=== PATIENT | male | born 1950 | race Caucasian/White ===

== ENCOUNTER 2022-03-15 08:15 | Inpatient (IN) | payer OTHER, SELFPAY ==
[2022-03-15] VITALS (14 sets, daily range): BP systolic 96–123; BP diastolic 58–70; PULSE 81–116; RESP 14–38; TEMP 35.9–37.1; O2SAT 92–96; BMI 20.7
--- NOTE | ~2022-03-15 | XR_ITS ---
EXAMINATION: XR chest 1V CLINICAL INFORMATION: Reason for Exam desaturation COMPARISON: None TECHNIQUE: XR chest 1V Tubes and lines: Port-A-Cath in place the tip of which projecting over the SVC/RA junction. Lungs and pleura: Diminished lung volume, no acute infiltrates or failure. Heart and mediastinum: Prominent aortic knob likely sequela of chronic systemic hypertension.. Bones/soft tissue: Skeletal structures included are normal for patient's age. XR/XR chest 1V IMPRESSION: 1. Port-A-Cath in place properly positioned. 2. Diminished lung volume. No acute infiltrates or failure.
--- NOTE | ~2022-03-15 | CT_ITS ---
EXAMINATION: CT HEAD WITHOUT CONTRAST CLINICAL INFORMATION: Altered mental status COMPARISON: None. TECHNIQUE: Contiguous axial imaging was performed from the skull base to vertex without intravenous administration of contrast. Coronal and sagittal reformatted images are performed at the CT scanner. [This CT examination was performed using dose optimization techniques as appropriate, variously including the following: *Automated exposure control *Adjustment of mA and/or kV according to patient size (this includes techniques or standardized protocols for targeted exams where dose is matched to indication/reason for exam; i.e. extremities or head) *Use of iterative reconstruction technique] DLP: 746 mGy-cm. FINDINGS: There is no evidence of acute intracranial hemorrhage or territorial infarction. No abnormal mass-effect or midline shift is seen. Roberts to white matter differentiation is well preserved. No extra-axial fluid collections are identified. There is generalized global volume loss. There is moderate prominence of the ventricles and the sulci . There is mild hypodensity of the periventricular white matter due to chronic small vessel ischemic disease. There are vascular calcifications of the internal carotid arteries bilaterally. There is no osseous abnormality. Left sphenoid sinus is nearly entirely opacified. Mastoid air cells and middle ear cavities are normally aerated CT/CT head/brain wo IV con IMPRESSION: No acute intracranial pathology.
--- NOTE | ~2022-03-15 | US_ITS ---
EXAMINATION: US RETROPERITONEAL LIMITED (RENAL ONLY) CLINICAL INFORMATION: HPI. COMPARISON: CT abdomen pelvis 03/17/2018 TECHNIQUE: Grayscale retrograde imaging of kidneys and bladder was performed. FINDINGS: RIGHT KIDNEY: Right kidney has been surgically removed. LEFT KIDNEY: 12.8 x 5.5 x 4.3 cm (SAG x AP x TRV). The Renal cortical thickness is normal. No calculi or focal parenchymal lesions. No hydronephrosis. US/US renal BI IMPRESSION: 1. Unremarkable left kidney. The right kidney has been surgically removed.
--- NOTE | 2022-03-15 08:59 | PC.NURSE ---
per pt had bone marrow biopsy on his [place] crest. pt is a/o x 4 no sob/camille noted lungs - cta. unable to speak 2ndary to largnxgectomy. heart sound regular( tachy 109). abd soft and non-tender, bxs + x [address] escobedo, pt/ aware of plan of care. hemmocult positive.
--- NOTE | 2022-03-15 09:03 | ECG_ITS ---
Test Reason : gi bleed Blood Pressure : / mmHG Vent. Rate : 106 BPM Atrial Rate : 106 BPM P-R Int : 124 ms QRS Dur : 084 ms QT Int : 336 ms P-R-T Axes : 042 014 042 degrees QTc Int : 446 ms Sinus tachycardia Nonspecific ST abnormality Abnormal ECG When compared with ECG of 24-JUN-2017 14:01, Vent. rate has increased BY 42 BPM QRS duration has decreased Nonspecific T wave abnormality now evident in Inferior leads T wave amplitude has decreased in Lateral leads ST now depressed in Anterior leads Referred By: Wendy Wright Electronically Signed By:LUIS GUTIERREZ MD
--- NOTE | 2022-03-15 09:28 | ED.GENADULT ---
HPI - General Adult General Chief complaint: General Medical Stated complaint: DIZZY,WEAK,LETHARGIC WHILE IN SHOWER,RESOLVED Time Seen by Provider: 03/15/22 08:36 History of Present Illness HPI narrative: Patient is a 71-year-old male with a long history of alcohol use. History of myeloproliferative disorder. Currently undergoing treatment at [facility]. 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 Presented today with having multiple bouts of coffee-ground emesis. At least 3 in the last 24 hours. Multiple bowel movement that was maroon in color. Patient denies any NSAID use. Has a history of having low platelets. The last platelet count at [facility] was 8. Patient was sent to the hospital for further evaluation. Positive generalized malaise weakness. No endoscopy done in the past. Related Data Home Medications Medication Instructions Recorded Confirmed acetaminophen 325 mg tablet 650 mg PO Q4H PRN Pain 03/15/22 03/15/22 allopurinol 300 mg tablet 300 mg PO DAILY 03/15/22 03/15/22 amlodipine 5 mg tablet 5 mg PO DAILY PRN Blood Pressure 03/15/22 03/15/22 amoxicillin 875 mg-potassium 1 tab PO BID 03/15/22 03/15/22 clavulanate 125 mg tablet atorvastatin 40 mg tablet 40 mg PO DAILY@2100 03/15/22 03/15/22 cholecalciferol (vitamin D3) 50 50 mcg PO DAILY 03/15/22 03/15/22 mcg (2,000 unit) tablet cyanocobalamin (vitamin B-12) 250 250 mcg PO BID 03/15/22 03/15/22 mcg tablet folic acid 1 mg tablet 1 mg PO DAILY 03/15/22 03/15/22 gabapentin 300 mg capsule 300 mg PO BID@0900,1300 03/15/22 03/15/22 gabapentin 600 mg tablet 600 mg PO DAILY@2100 03/15/22 03/15/22 levothyroxine 100 mcg tablet 100 mcg PO DAILY 03/15/22 03/15/22 lidocaine-prilocaine 2.5 %-2.5 % 1 appl topical ONCE PRN Painful 03/15/22 03/15/22 topical cream Procedure midodrine 5 mg tablet 5 mg PO TID PRN Blood Pressure 03/15/22 03/15/22 mirtazapine 7.5 mg tablet 7.5 mg PO BEDTIME 03/15/22 03/15/22 prochlorperazine maleate 10 mg 10 mg PO Q6H PRN Nausea 03/15/22 03/15/22 tablet venetoclax 100 mg tablet 400 mg PO DAILY 03/15/22 03/15/22 (Venclexta) Allergies Allergy/AdvReac Type Severity Reaction Status Date / Time Iodinated Contrast Media Allergy Hives Verified 03/15/22 10:15 [IV Contrast Dye] Review of Systems Review of Systems: No fever no chills no diaphoresis Yes all other systems are reviewed and are negative [facility] Past Medical History Attestation statement: The following information was validated with the patient. Social History Social History Alcohol intake: current Alcohol intake frequency: holidays/special occasions only Smoked in Last 30 Days: No Use of substances other than those prescribed or required for medical reasons: No Advance Directives: Yes Advance Directives Information Provided: Yes Advance Directives on File: No Physical Exam ED Vital Signs: Vital Signs - 24 hr 03/15/22 08:38 03/15/22 08:48 03/15/22 10:32 Temperature 98.7 F 98.7 F 98.6 F Pulse Rate 116 H 108 H 97 Respiratory Rate 38 H 26 H 32 H Blood Pressure 108/69 108/69 106/63 Pulse Oximetry 95 95 96 Oxygen Delivery Method Room Air Room Air Room Air BMI result Body Mass Index 20.7 Appearance: Alert. Oriented X3. No acute distress. Eyes: Pupils equal, round and reactive to light. ENT: Pharynx normal. Extremely pale. Dry. Neck: Normal inspection. Neck supple. No lymph nodes noted. No crepitus CVS: Normal heart rate and rhythm. Pulses normal. Normal S1 and S2 Respiratory: No respiratory distress. Breath sounds normal. No Wheezing. No rales Abdomen: Soft and nontender. No rigidity. No distention. good BS x4 Skin: Skin warm and dry. Normal skin color. Normal skin turgor. Rectal exam done with nurse Dilia present. Melanotic stool Extremities: No lower extremity edema. Neurovascular intact to all extremities. No Lacerations. No Rash Neuro: Oriented X 3. No motor deficit. No sensory deficit. Moving all extermities Medications Administered Discontinued Medications Generic Name Dose Route Start Last Admin Trade Name Nguyen PRN Reason Stop Dose Admin Acetaminophen 975 mg 03/15/22 10:56 03/15/22 11:02 Acetaminophen 325 Mg Tablet PO 03/15/22 10:57 975 mg ONCE ONE Administration Octreotide Acetate 50 mcg 03/15/22 09:03 03/15/22 09:50 Octreotide Acetate 100 Mcg/Ml Ampul IVPUSH 03/15/22 09:04 50 mcg ONCE ONE Administration Ondansetron HCl 4 mg 03/15/22 10:10 03/15/22 10:16 Ondansetron Hcl 4 Mg/2 Ml Vial IVPUSH 03/15/22 10:11 4 mg ONCE ONE Administration Pantoprazole Sodium 40 mg 03/15/22 09:03 03/15/22 09:50 Pantoprazole Sodium 40 Mg/10 Ml Vial IVPUSH 03/15/22 09:04 40 mg ONCE ONE Administration Medical Decision Making MDM Narrative Medical decision making narrative: History of myeloproliferative disorder. With history of having low platelets and low hemoglobin. Now has GI bleed. Already had 2 unit blood transfusion last week. Will check patient's hemoglobin immediately. Likely will require transfusion and admission. Started patient on PPI as patient has a long history of alcohol use. Octreotide started. Unknown variceal status. Patient's hemoglobin 10 out to be 7 range. Baseline hemoglobin in the 9 range. Patient's platelet is low. Still being we calibrated. Will 1st transfuse patient with platelets. Then with blood. Risk and benefit of transfusion discussed with patient. Patient's old labs from [facility] patient's portal was reviewed with him. Case discussed with GI. Case also discussed with hospitalist team. Patient is being admitted. In transfused. Lab Data Result diagrams: 03/15/22 09:27 03/15/22 09:27 Labs: Lab Results 03/15/22 03/15/22 03/15/22 Range/Units 09:18 09:25 09:27 RBC 2.61 L (4.60-5.80) X10*6/uL Hgb 7.7 L (14.0-18.0) g/dl Hct 23.3 L (42.0-52.0) % MCV 89.3 (80.0-98.0) fL MCH 29.5 (27.0-33.0) pg MCHC 33.0 (31.0-36.0) g/dl RDW 16.3 H (11.0-16.0) % MPV Not Reportable Immature Gran % (Auto) Cancelled Neut % (Auto) Cancelled Lymph % (Auto) Cancelled Antelope % (Auto) Cancelled Eos % (Auto) Cancelled Baso % (Auto) Cancelled Lymph # (Auto) Cancelled Antelope # (Auto) Cancelled Eos # (Auto) Cancelled Baso # (Auto) Cancelled Abs Immat Gran (auto) Cancelled Absolute Neuts (auto) Cancelled Absolute Nucleated RBC 0.310 H (0.0-0.012) X10*3/uL Nucleated RBC % (auto) 0.8 H (0.0-0.2) /100WBC Smear Path Review SEE NOTE Sodium (135-145) mmol/L Potassium (3.3-5.1) mmol/L Chloride (96-108) mmol/L Carbon Dioxide (22-29) mmol/L Anion Gap (12-20) BUN (9-16) mg/dL Creatinine (0.5-1.4) mg/dL Estim Creat Clear Calc Estimated GFR Random Glucose (60-115) mg/dL Calcium (8.4-10.2) mg/dL Total Bilirubin (0.0-1.0) mg/dL Direct Bilirubin (0.0-0.5) mg/dL AST (5-37) U/L ALT (0-40) U/L Alkaline Phosphatase (39-117) U/L Troponin I High Sens (<3.5-35.0) ng/L Total Protein (6.5-8.0) g/dL Albumin (3.5-5.0) g/dL Lipase (8-78) U/L Ethyl Alcohol mg/dL COVID-19 ([facility]) Negative (Negative) COVID-19 Clin Com See Note Blood Type A Positive Antibody Screen POSITIVE Crossmatch See Detail Crossmatch (AHG) See Detail 03/15/22 03/15/22 03/15/22 Range/Units 09:27 09:27 09:27 RBC (4.60-5.80) X10*6/uL Hgb (14.0-18.0) g/dl Hct (42.0-52.0) % MCV (80.0-98.0) fL MCH (27.0-33.0) pg MCHC (31.0-36.0) g/dl RDW (11.0-16.0) % MPV Immature Gran % (Auto) Neut % (Auto) Lymph % (Auto) Antelope % (Auto) Eos % (Auto) Baso % (Auto) Lymph # (Auto) Antelope # (Auto) Eos # (Auto) Baso # (Auto) Abs Immat Gran (auto) Absolute Neuts (auto) Absolute Nucleated RBC (0.0-0.012) X10*3/uL Nucleated RBC % (auto) (0.0-0.2) /100WBC Smear Path Review Sodium 140 (135-145) mmol/L Potassium 4.4 (3.3-5.1) mmol/L Chloride 102 (96-108) mmol/L Carbon Dioxide 15 L (22-29) mmol/L Anion Gap 27 H (12-20) BUN 61 H (9-16) mg/dL Creatinine 2.34 H (0.5-1.4) mg/dL Estim Creat Clear Calc 25.2 Estimated GFR 28 Random Glucose 116 H (60-115) mg/dL Calcium 9.0 (8.4-10.2) mg/dL Total Bilirubin 1.0 (0.0-1.0) mg/dL Direct Bilirubin 0.6 H (0.0-0.5) mg/dL AST 83 H (5-37) U/L ALT 48 H (0-40) U/L Alkaline Phosphatase 149 H (39-117) U/L Troponin I High Sens 50.7 H (<3.5-35.0) ng/L Total Protein 6.3 L (6.5-8.0) g/dL Albumin 3.1 L (3.5-5.0) g/dL Lipase 14 (8-78) U/L Ethyl Alcohol < 10 mg/dL COVID-19 ([facility]) (Negative) COVID-19 Clin Com Blood Type Antibody Screen Crossmatch Crossmatch (AHG) Critical Care Time Critical Care Time Critical Care Time: Yes Total Critical Care Time: 40 Attestation: I have personally provided 40 minutes of critical care time exclusive of time spent on separately billable procedures. Time includes review of lab data, radiology results, discussion with consultants, and monitoring for potential decompensation. Interventions were performed as documented above Discharge Plan Discharge Clinical Impression: Acute GI bleeding Patient Disposition: Admitted As Inpatient Prescriptions: No Action atorvastatin 40 mg tablet 40 mg PO DAILY@2100 midodrine 5 mg tablet 5 mg PO TID PRN (Reason: Blood Pressure) Rx Instructions: BLOOD PRESSURE <100 SYSTOLIC lidocaine-prilocaine 2.5-2.5 % cream 1 appl topical ONCE PRN (Reason: Painful Procedure) Rx Instructions: USE FOR PORT PROCEDURE NEEDED folic acid 1 mg tablet 1 mg PO DAILY allopurinol 300 mg tablet 300 mg PO DAILY Rx Instructions: WAS SUPPOSED TO INITIATE THERAPY ON 03/15/22 amoxicillin-pot clavulanate 875-125 mg tablet 1 tab PO BID mirtazapine 7.5 mg tablet 7.5 mg PO BEDTIME Venclexta 100 mg tablet 400 mg PO DAILY Rx Instructions: 400 MG IS GOAL DOSE AFTER RAMP UP. THERAPY INITIATION WAS SUPPOSED TO BE 03/15/22 levothyroxine 100 mcg Tablet 100 mcg PO DAILY acetaminophen 325 mg Tablet 650 mg PO Q4H PRN (Reason: Pain) gabapentin 600 mg Tablet 600 mg PO DAILY@2100 cyanocobalamin (vitamin B-12) 250 mcg Tablet 250 mcg PO BID amlodipine 5 mg Tablet 5 mg PO DAILY PRN (Reason: Blood Pressure) Rx Instructions: TAKE WHEN BLOOD PRESSURE IS >140/90 prochlorperazine maleate 10 mg Tablet 10 mg PO Q6H PRN (Reason: Nausea) gabapentin 300 mg Capsule 300 mg PO BID@0900,1300 cholecalciferol (vitamin D3) 50 mcg (2,000 unit) Tablet 50 mcg PO DAILY
[2022-03-15 09:44] LABS: Hematocrit 23.3 % (42.0-52.0); Hemoglobin 7.7 g/dl (14.0-18.0); Mean Corpuscular Hemoglobin 29.5 pg (27.0-33.0); Mean Corpuscular Volume 89.3 fL (80.0-98.0); NRBC Pct Auto 0.8 /100WBC (0.0-0.2); PLT CLUMP 1; Red Blood Count 2.61 X10*6/uL (4.60-5.80); Red Cell Distribution Width 16.3 % (11.0-16.0)
[2022-03-15 09:46] LABS: COVID-19 Test Negative (Negative); IDNOW Serial# 9DB6401D
[2022-03-15 09:46] LABS: WBC ABN SCTR FOR CBC 1
--- NOTE | 2022-03-15 09:49 | PC.NURSE ---
pt is a/op x 4 and is able to make needs known. denies any pain disc.
[2022-03-15] MEDS: Pantoprazole Sodium 40 MG/10 ML VIAL IVPUSH ×2 (09:50→16:20)
[2022-03-15] MEDS: Octreotide Acetate 100 MCG/ML AMPUL 50 MCG IVPUSH (09:50)
[2022-03-15 10:04] LABS: Ethanol < 10 mg/dL
[2022-03-15 10:06] LABS: Alanine Aminotransferase 48 U/L (0-40); Albumin Level 3.1 g/dL (3.5-5.0); Alkaline Phosphatase 149 U/L (39-117); Anion Gap 27 (12-20); Aspartate Amino Transferase 83 U/L (5-37); Bilirubin Direct 0.6 mg/dL (0.0-0.5); Blood Urea Nitrogen 61 mg/dL (9-16); Carbon Dioxide 15 mmol/L (22-29); Chloride 102 mmol/L (96-108); Creatinine Clr Calc Pharmacy 25.2; Estimated Glomerular Filt Rate 28; Glucose Random 116 mg/dL (60-115); Lipase 14 U/L (8-78); Potassium 4.4 mmol/L (3.3-5.1); Sodium 140 mmol/L (135-145); Total Protein 6.3 g/dL (6.5-8.0)
[2022-03-15 10:09] LABS: Troponin-I High Sensitivity 50.7 ng/L (<3.5-35.0)
--- NOTE | 2022-03-15 10:14 | PC.NURSE ---
pt n/v small amt of dark brown emesis, md aware.
[2022-03-15] MEDS: ondansetron HCL 4 MG/2 ML VIAL IVPUSH (10:16)
[2022-03-15] MEDS: Acetaminophen 325 MG TABLET 975 MG PO (11:02)
--- NOTE | 2022-03-15 11:06 | PC.NURSE ---
Received report from ERICKA Dobbs. This RN met with pt, pt is A&Ox4, unable to speak s/p laryngectomy, able to communicate via mouthing words and hands expressions. at bedside assisting with communication
--- NOTE | 2022-03-15 12:06 | PHA.MEDREC ---
Pharmacy Consult ? Medication Reconciliation Pharmacy has completed the medication reconciliation. Patient had a very complete medication list. 2 of the medications entered (allopurinol and venetoclax) were not supposed to initiate until today (03/15/22) as part of a new treatment regimen so patient has never taken them before.
[2022-03-15 12:38] LABS: Atypical Lymphs Percent Manual 4 % (0-6); Band Neutrophils Percent 4 % (3-5); Blast Percent 16 %; Lymphocytes Percent Manual 11 % (20-40); Monocytes Percent Manual 3 % (2-11); Neutrophils Percent Manual 61 % (45-73); Nucleated Red Blood Cells 7 /100WBC (0-0); Promyelocytes Percent 1 %
[2022-03-15 12:41] LABS: Burr Cells 2+ (3-5) /OIF; Large Platelet PRESENT; Platelet Estimate DECREASED (NORMAL)
[2022-03-15 12:42] LABS: Ovalocytes 1+ (5-14) /OIF; Schistocytes 1+ (0-2) /OIF
[2022-03-15 12:43] LABS: Microcytosis 1+ (5-14) /OIF; RBC Morphology NOTED
[2022-03-15 12:44] LABS: Platelet Morphology Comment NOTE
[2022-03-15 12:47] LABS: Atypical Lymph Absolute Manual 1.6 x10*3/uL; Blastocytes Absolute 6.5 X10*3/uL; Lymphocytes Absolute Manual 4.5 X10*3/uL (1.2-4.9); Monocytes Absolute Manual 1.2 X10*3/uL (0.1-1.2); Neutrophils Absolute Manual 26.5 X10*3/uL (2.0-8.3); Promyelocytes Absolute 0.4 X10*3/uL; White Blood Count 40.8 X10*3/uL (4.8-10.8)
[2022-03-15 12:48] LABS: Platelet Count 20 X10*3/uL (160-400)
--- NOTE | 2022-03-15 13:17 | PC.NURSE ---
patients requesting benadryl to be administered prior to pt getting platelets, states that he had hives last platelet infusion he got and the benadryl helped, pt also has had blood reactions in the form of a fever which she states he is just medicated with tylenol and is able to continue with the infusions.
--- NOTE | 2022-03-15 14:40 | P.HPHOSP_ITS ---
History of Present Illness Date of Service: 03/15/22 Chief Complaint: dark vomitus The patient is a 71 year old male with a PMH of MDS currently being treated at [facility], laryngeal ca s/p chemo/laryngectomy (In ), R renal cell Ca s/p resection, prior alcohol use, HTN and Hypotension, hypothryoid, HLD who presents to the ED after he had a dark color vomitus on the day of admission. Due to his laryngectomy, the patient is unable to speak and hence the history is obtained from his who is bedside. She reports that he underwent a bone marrow biopsy at [facility] on the Tueady prior to admission. He has had low platelets and anemia for quiet some while. Upon further questioning, the pt does endorse that he had melanotic stools for several days. He reports epigastric abdominal pain. He denies NSAID use. Reports last alcoholic drink was about 3 weeks ago. In the ED, patients work up revealed anemia/thrombocytopenia/leukocytosis (Hb around 7 and platelets around 20, wbc 40 with 16% blasts). Dr. Wright from the ED reported that he discussed the presence of blasts in the patient's peripheral smear with Dr. Rojas at [facility]. Dr. Wright reports that he does not need to be transferred to [facility] for this particular reason. Patient's has CBC records from [facility] from Tuesday (3 days prior to admission) which show 20% blasts. The patient has been given IV PPI, and will be transfused 2 units PRBC + Platelets. GI has been informed by the ED provider. Review of Systems Review of Systems: negative except HPI [facility] Medical History (Updated 03/15/22 @ 14:51 by Alessandro Brar MD) Dyslipidemia Hypothyroidism Laryngeal cancer MDS (myelodysplastic syndrome) Peripheral arterial disease Renal cell carcinoma Surgical History (Updated 03/15/22 @ 14:51 by Alessandro Brar MD) H/O laryngectomy History of nephrectomy S/P arterial stent Social History Alcohol intake: current Alcohol intake frequency: holidays/special occasions only Smoked in Last 30 Days: No Use of substances other than those prescribed or required for medical reasons: No Advance Directives: Yes Advance Directives Information Provided: Yes Advance Directives on File: No Meds Allergies Allergy/AdvReac Type Severity Reaction Status Date / Time Iodinated Contrast Media Allergy Hives Verified 03/15/22 10:15 [IV Contrast Dye] Active Medications: Current Medications Acetaminophen (Acetaminophen 325 Mg Tablet) 650 mg PO Q6H PRN PRN Reason: Pain, Mild (Pain Scale 1-3) Diphenhydramine HCl 25 mg/ (Sodium Chloride) 50.5 mls @ 200 mls/hr IV ONCE [facility] Last Admin: 03/15/22 14:09 Dose: 200 mls/hr Ondansetron HCl (Ondansetron Hcl 4 Mg/2 Ml Vial) 4 mg IVPUSH Q8H PRN PRN Reason: Nausea and Vomiting Pantoprazole Sodium (Pantoprazole Sodium 40 Mg/10 Ml Vial) 40 mg IVPUSH BID@0630,1630 [facility] Pharmacy Consult (Consult Rx Perform Med Rec) 1 each MISCELLANE ONCE PRN PRN Reason: Consult order Sodium Chloride (0.9 % Sodium Chloride Flush 3 Ml Syringe) 3 ml IVFLUSH QSHIFT [facility] Home Medications Medication Instructions Recorded Confirmed Last Taken Type acetaminophen 325 mg tablet 650 mg PO Q4H PRN Pain 03/15/22 03/15/22 Unknown History allopurinol 300 mg tablet 300 mg PO DAILY 03/15/22 03/15/22 Unknown History amlodipine 5 mg tablet 5 mg PO DAILY PRN Blood Pressure 03/15/22 03/15/22 Unknown History amoxicillin 875 mg-potassium 1 tab PO BID 03/15/22 03/15/22 03/15/22 History clavulanate 125 mg tablet atorvastatin 40 mg tablet 40 mg PO DAILY@209903/15/22 03/15/22 03/14/22 History cholecalciferol (vitamin D3) 50 50 mcg PO DAILY 03/15/22 03/15/22 03/15/22 History mcg (2,000 unit) tablet cyanocobalamin (vitamin B-12) 250 250 mcg PO BID 03/15/22 03/15/22 03/15/22 History mcg tablet folic acid 1 mg tablet 1 mg PO DAILY 03/15/22 03/15/22 03/15/22 History gabapentin 300 mg capsule 300 mg PO BID@0900,1300 03/15/22 03/15/22 03/15/22 History gabapentin 600 mg tablet 600 mg PO DAILY@2100 03/15/22 03/15/22 03/14/22 History levothyroxine 100 mcg tablet 100 mcg PO DAILY 03/15/22 03/15/22 03/15/22 History lidocaine-prilocaine 2.5 %-2.5 % 1 appl topical ONCE PRN Painful 03/15/22 03/15/22 Unknown History topical cream Procedure midodrine 5 mg tablet 5 mg PO TID PRN Blood Pressure 03/15/22 03/15/22 Unknown History mirtazapine 7.5 mg tablet 7.5 mg PO BEDTIME 03/15/22 03/15/22 03/14/22 History prochlorperazine maleate 10 mg 10 mg PO Q6H PRN Nausea 03/15/22 03/15/22 Unknown History tablet venetoclax 100 mg tablet 400 mg PO DAILY 03/15/22 03/15/22 Unknown History (Venclexta) Physical Exam Vital Signs and Narrative: Vital Signs: Last Vital Signs Temp 97.2 F 03/15/22 14:29 Pulse 85 03/15/22 14:29 Resp 18 03/15/22 14:29 BP 109/65 03/15/22 14:29 Pulse Ox 96 03/15/22 13:26 O2 Del Method 03/15/22 13:26 BMI result Body Mass Index 20.7 Const: Other: Constitutional - Awake and Alert, No apparent distress, chronically ill appearing Eyes - PERRLA, EOMI Cardiovascular - S1S2, RRR, No edema Respiratory - Normal lung expansion, Normal respiratory effort, No respiratory distress, CTA bilaterally Gastrointestinal - NT / ND; +BS; No rebound or guarding - No CVA tenderness Extremities - no calf tenderness bilaterally, no swelling Musculoskeletal - Normal inspection, normal ROM Skin - Warm/Dry Neurological - Alert & oriented x3, No focal deficit Psychological - Appropriate affect Results Labs CBC and Chem 7: 03/15/22 09:27 03/15/22 09:27 Labs: Laboratory Results - last 24 hr 03/15/22 03/15/22 03/15/22 09:18 09:25 09:27 MCV 89.3 MCH 29.5 MCHC 33.0 RDW 16.3 H Plt Count 20 L* MPV Not Reportable Immature Gran % (Auto) Cancelled Neut % (Auto) Cancelled Lymph % (Auto) Cancelled [place] % (Auto) Cancelled Eos % (Auto) Cancelled Baso % (Auto) Cancelled Lymph # (Auto) Cancelled [place] # (Auto) Cancelled Eos # (Auto) Cancelled Baso # (Auto) Cancelled Abs Immat Gran (auto) Cancelled Absolute Neuts (auto) Cancelled Absolute Nucleated RBC 0.310 H Nucleated RBC % (auto) 0.8 H Neutrophils % (Manual) 61 Band Neutrophils % 4 Lymphocytes % (Manual) 11 L Atypical Lymphs % (Man) 4 Monocytes % (Manual) 3 Promyelocytes % 1 Blast Cells % (Manual) 16 Abs Neuts (Manual) 26.5 H Lymphocytes # (Manual) 4.5 Atyp Lymphs # (Manual) 1.6 Monocytes # (Manual) 1.2 Promyelocytes # 0.4 Blast Cells # 6.5 Nucleated RBCs 7 H Platelet Estimate DECREASED Large Platelets PRESENT Plt Morphology Comment NOTE RBC Morphology NOTED Microcytosis 1+ (5-14) Ovalocytes 1+ (5-14) Alex Cells 2+ (3-5) Schistocytes 1+ (0-2) Smear Path Review SEE NOTE Anion Gap Estim Creat Clear Calc Estimated GFR Random Glucose Calcium Total Bilirubin Direct Bilirubin AST ALT Alkaline Phosphatase Troponin I High Sens Total Protein Albumin Lipase Ethyl Alcohol COVID-19 ([facility]) Negative COVID-19 Clin Com See Note Blood Type A Positive Antibody Screen NEGATIVE Antibody Identification Negative MYRA, Polyspecific NEGATIVE Positive MYRA Work-up TNP Crossmatch See Detail Crossmatch (AHG) See Detail Enhanced Crossmatch See Detail 03/15/22 03/15/22 03/15/22 09:27 09:27 09:27 MCV MCH MCHC RDW Plt Count MPV Immature Gran % (Auto) Neut % (Auto) Lymph % (Auto) [place] % (Auto) Eos % (Auto) Baso % (Auto) Lymph # (Auto) [place] # (Auto) Eos # (Auto) Baso # (Auto) Abs Immat Gran (auto) Absolute Neuts (auto) Absolute Nucleated RBC Nucleated RBC % (auto) Neutrophils % (Manual) Band Neutrophils % Lymphocytes % (Manual) Atypical Lymphs % (Man) Monocytes % (Manual) Promyelocytes % Blast Cells % (Manual) Abs Neuts (Manual) Lymphocytes # (Manual) Atyp Lymphs # (Manual) Monocytes # (Manual) Promyelocytes # Blast Cells # Nucleated RBCs Platelet Estimate Large Platelets Plt Morphology Comment RBC Morphology Microcytosis Ovalocytes Lancing Cells Schistocytes Smear Path Review Anion Gap 27 H Estim Creat Clear Calc 25.2 Estimated GFR 28 Random Glucose 116 H Calcium 9.0 Total Bilirubin 1.0 Direct Bilirubin 0.6 H AST 83 H ALT 48 H Alkaline Phosphatase 149 H Troponin I High Sens 50.7 H Total Protein 6.3 L Albumin 3.1 L Lipase 14 Ethyl Alcohol < 10 COVID-19 ([facility]) COVID-19 Clin Com Blood Type Antibody Screen Antibody Identification MYRA, Polyspecific Positive MYRA Work-up Crossmatch Crossmatch (AHG) Enhanced Crossmatch Assessment and Plan (1) Acute GI bleeding: Status: Acute Plan 71 yo M with multiple medical issues including active treatment for MDS who presents with a 1 day history of dark vomitus and a several day history of melatonic stools. His presentation is consistent with upper gi bleed. He will be admitted for further treatment. 1. Acute GI bleed / acute blood loss anemia 2 units prbcs + 1 unit platelets ordered by ED IV PPI GI consult NPO including meds for now 2. Thrombocytopenia / leukocytosis with 16% blasts likey due to underlying MDS ED provider discussed the case with patient's oncologist at [facility]. Per ED provider, the patient does not need transfer to the [facility]. 3. LYNN with metabolic acidosis likely secondary to volume depletion being given blood -- will hold off on IV hydration repeat with AM labs 4. Prior alcohol use reports last drink >3 weeks ago monitor for withdrawal hold his PO meds today -- restart after GI eval Full Code DVT pptx, mechanical due to Gi bleed. Quality Stroke Does the patient have a stroke diagnosis?: No VTE Prior VTE?: No VTE Risk Level:: Medical - moderate - high VTE Device Contraindication: N/A - Device Ordered VTE Drug Contraindication: Treatment Not Tolerated
--- NOTE | 2022-03-15 16:05 | PM.EVENT ---
Event Note Date of Service: 03/15/22 Event Note: GI consult dictated egd scheduled for 03/16 for further evaluation of GI Bleeding agree with transfusions, ppi, monitoring hct. heme/onc to eval if further blood products needed prior to EGD
[2022-03-15] MEDS: 0.9 % Sodium Chloride Flush 3 ML SYRINGE IVFLUSH ×2 (16:20→23:35)
--- NOTE | 2022-03-15 16:24 | PC.NURSE ---
patient a&ox3, denies pain/discomfort, cardiac surgeon nsr 90s, vitals continue to be stable, pt denies itchiness, denies sob, denies rash, temperature currently wnl, pt tolerating transfusion well, family at bedside, call ortega within reach, will cnotinue to monitor
[2022-03-16] VITALS (17 sets, daily range): BP systolic 98–141; BP diastolic 55–74; PULSE 83–105; RESP 16–20; TEMP 35.6–37.7; O2SAT 91–99; BMI 20.7
[2022-03-16] MEDS: diphenhydrAMINE HCL 50 MG/ML VIAL 25 MG IVPUSH (00:10)
--- NOTE | 2022-03-16 02:41 | CONS_ITS ---
DATE OF SERVICE: 03/15/2022 REFERRING PHYSICIAN: Dr. Wright REASON FOR CONSULTATION: GI bleeding. HISTORY OF PRESENT ILLNESS: The patient is a pleasant 71-year-old man who was admitted to the hospital after presenting to the emergency room with complaints of dizziness and weakness at home. He reportedly felt weak while in the shower and was brought to the hospital. He also reported some vomiting of dark material that looked like coffee grounds and had black stools. In the emergency department, he was evaluated with laboratory studies showing a hematocrit of 23.3 and a platelet count of 20. Rectal exam reportedly revealed melena. He was admitted to the hospital and has been given platelet transfusion. He is currently scheduled to receive packed red blood cells for his anemia. He had a high white count on admission with 16% blasts as well. The patient is status post laryngectomy and most of the history is obtained from his who reports he does have a diagnosis of myelodysplastic syndrome and underwent recent bone marrow biopsy at [facility] where he is treated. He has also been treated with packed red blood cell transfusion and platelet transfusion as an outpatient. He denies a prior history of upper GI bleeding. He does not use NSAIDs. He formally drank alcohol regularly 3-4 drinks per day by his report, but stopped this about 3 weeks ago. PAST MEDICAL HISTORY: 1. Myelodysplastic syndrome. 2. Hypothyroidism. 3. Laryngeal cancer, status post laryngectomy. 4. Hypothyroidism. 5. Peripheral arterial disease, status post stent placements and multiple procedures on his lower extremities. 6. Renal cell carcinoma with right nephrectomy. CURRENT MEDICATIONS: Current medication list is reviewed in the chart. ALLERGIES: CONTRAST DYE. FAMILY HISTORY: This is reviewed with the patient and is noncontributory. SOCIAL HISTORY: He denies current tobacco and alcohol use. REVIEW OF SYSTEMS: SKIN: No pruritus. HEENT: Negative. CARDIOPULMONARY: No shortness of breath or chest pain. GASTROINTESTINAL: As above. GENITOURINARY: Negative. NEUROPSYCHIATRIC: Negative. PHYSICAL EXAMINATION: GENERAL: Shows a thin male lying in bed. VITAL SIGNS: Stable. SKIN: Anicteric. HEENT: Shows no scleral icterus. NECK: Shows status post laryngectomy. LUNGS: Clear. HEART: Shows a regular rate and rhythm. S1, S2. No murmur. ABDOMEN: Soft without focal masses or tenderness. Bowel sounds are present. No organomegaly is noted. EXTREMITIES: Without edema. LABORATORY DATA: Shows a white blood cell count of 40.8, hematocrit 23.3, platelet count 20. IMPRESSION: Upper gastrointestinal bleeding. The differential diagnosis for this is quite broad, especially in the setting of thrombocytopenia, possible causes include gastritis, esophagitis, peptic ulcer disease, AVMs, and mass lesions. We discussed this today. I have recommended he undergo upper endoscopy once his transfusions are complete. He will be seen by Hematology/Oncology regarding the need for any other transfusions prior to endoscopy. I agree with treating him with a proton pump inhibitor and following his hematocrit. Thank you for asking me to see him. I will follow him in the hospital with you. MD IRMA Easton/MARLENY / [phone]
[2022-03-16] MEDS: Pantoprazole Sodium 40 MG/10 ML VIAL IVPUSH ×2 (05:00→15:57)
[2022-03-16 07:20] LABS: PLT CLUMP 1
[2022-03-16 07:23] LABS: Hematocrit 27.8 % (42.0-52.0); Hemoglobin 9.4 g/dl (14.0-18.0); Mean Corpuscular HGB Conc 33.8 g/dl (31.0-36.0); Mean Corpuscular Hemoglobin 30.7 pg (27.0-33.0); Mean Corpuscular Volume 90.8 fL (80.0-98.0); NRBC Pct Auto 0.5 /100WBC (0.0-0.2); Red Blood Count 3.06 X10*6/uL (4.60-5.80); Red Cell Distribution Width 15.7 % (11.0-16.0)
[2022-03-16 07:24] LABS: Immature Retic Fraction 3.6 % (2.3-13.4); Retic HGB Equivalent 39.5 pg (30.0-35.0); Reticulocyte Percent 0.7 % (0.5-1.8); Reticulocytes Absolute 0.022 X10*6/uL (0.026-0.095)
[2022-03-16 07:29] LABS: Fibrinogen 518 MG/DL (259-690); INTERNATIONAL NORM RATIO 1.7 (0.9-1.1); Prothrombin Time 19.4 SEC (10.0-13.1)
[2022-03-16 07:31] LABS: Partial Thromboplastin Time 27.7 SEC (26.0-36.4)
[2022-03-16 07:33] LABS: PLT ABN DIST 1; WBC ABN SCTR FOR CBC 1
[2022-03-16 07:39] LABS: Anion Gap 23 (12-20); Blood Urea Nitrogen 82 mg/dL (9-16); Calcium 8.2 mg/dL (8.4-10.2); Carbon Dioxide 17 mmol/L (22-29); Chloride 104 mmol/L (96-108); Estimated Glomerular Filt Rate 25; Glucose Random 85 mg/dL (60-115); Potassium 4.1 mmol/L (3.3-5.1); Sodium 140 mmol/L (135-145)
[2022-03-16 07:41] LABS: Alanine Aminotransferase 43 U/L (0-40); Albumin Level 2.8 g/dL (3.5-5.0); Alkaline Phosphatase 119 U/L (39-117); Aspartate Amino Transferase 69 U/L (5-37); Bilirubin Direct 1.3 mg/dL (0.0-0.5); Bilirubin Total 1.8 mg/dL (0.0-1.0); Total Protein 5.7 g/dL (6.5-8.0)
[2022-03-16 08:06] LABS: Platelet Count 20 X10*3/uL (160-400); White Blood Count 43.7 X10*3/uL (4.8-10.8)
[2022-03-16 08:11] LABS: Atypical Lymph Absolute Manual 4.8 x10*3/uL; Atypical Lymphs Percent Manual 11 % (0-6); Band Neutrophils Percent 1 % (3-5); Basophils Abs Manual 0.4 X10*3/uL (0.0-0.2); Basophils Percent Manual 1 % (0-2); Blast Percent 16 %; Lactate Dehydrogenase 4771 U/L (118-273); Lymphocytes Absolute Manual 4.8 X10*3/uL (1.2-4.9); Lymphocytes Percent Manual 11 % (20-40); Metamyelocytes Absolute 0.9 X10*3/uL; Metamyelocytes Percent 2 %; Monocytes Absolute Manual 2.2 X10*3/uL (0.1-1.2); Monocytes Percent Manual 5 % (2-11); Neutrophils Absolute Manual 23.6 X10*3/uL (2.0-8.3); Neutrophils Percent Manual 53 % (45-73); Nucleated Red Blood Cells 6 /100WBC (0-0)
[2022-03-16 08:13] LABS: RBC Morphology NOTED
[2022-03-16 08:14] LABS: Acanthocytes 1+ (0-2) /OIF; Burr Cells 1+ (0-2) /OIF; Hypochromasia 1+ (5-14) /OIF; Ovalocytes 1+ (5-14) /OIF
[2022-03-16 08:15] LABS: Large Platelet PRESENT; Platelet Estimate DECREASED (NORMAL); Platelet Morphology Comment NORMAL; Polychromasia 1+ (0-2) /OIF
--- NOTE | 2022-03-16 08:46 | MHC.CM.PN ---
CM met with Patient and his at bedside. It appears difficult for patient to speak;he gave CM permission to address questions with his . Patient lives in a house with his and Son and he has access to a cane, walker and w/c PRN. Patient has been to [facility] and the attached SNF/[facility] in the recent past. Home,self care is the goal and CM has initiated and will follow for dc planning. Patient has received covid vax x3 and his PCP is Dr. Osei.IMM addressed and original has been given to Patient and a copy has been placed on the chart.
--- NOTE | 2022-03-16 09:24 | P.CNHO_ITS ---
Subjective - Subjective Chief complaint: Weakness, bleeding Patient: new to practice Consult date: 03/16/22 Requesting Physician: Dr. Layne Primary Care Provider: Shaun Osei MD HPI - Consult Narrative Reason for consult: MDS/AML Narrative: Lance Schafer Sr is a 71 year old male who was admitted to [facility] for GI bleeding. He presented with complaints of dizziness, weakness, coffee-ground emesis and black colored stools. Workup in the emergency department revealed severe anemia with a hemoglobin of 7.7 and platelet count of 20 K. his white count was elevated at 40.8 with 16% blasts. Patient has a history of therapy related myelodysplastic syndrome that was diagnosed in June 2021, he is under the care of Dr. Rojas at [facility]. He has received 5 months of therapy with decitabine. He underwent a bone marrow biopsy just last week to see if he transformed to AML. In July 2015 he underwent right nephrectomy for renal cell cancer. 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 He underwent chemoradiotherapy. In December 2018 cancer recurred, he underwent complete laryngectomy at [facility]. He has a history of multiple vascular procedures both left and right fem-pop bypass surgeries. He was not told of renal insufficiency in the past. He denies any fever or chills at home. No abdominal pain or dysuria. No prior history of GI bleeding. Review of Systems - Constitutional Reports as per HPI, Reports malaise, Reports poor appetite, Reports weight loss - Cardiovascular Reports no additional cardiovascular complaints - Respiratory Reports no additional respiratory complaints - Gastrointestinal Reports black, tarry stools, Reports change in bowel habits Oncology Screenings - ECOG Performance Status ECOG Performance Status: 1 [facility] Medical History: Medical History (Last Reviewed 03/15/22 @ 19:57 by Onur Devries, ERICKA) Dyslipidemia Hypothyroidism Laryngeal cancer MDS (myelodysplastic syndrome) Peripheral arterial disease Renal cell carcinoma Surgical History: Surgical History (Last Reviewed 03/15/22 @ 19:57 by Onur Devries, ERICKA) H/O laryngectomy History of nephrectomy S/P arterial stent Social History: Social History (Last Updated 03/15/22 @ 19:57 by Onur Devries, ERICKA) Living Situation History: Household Members: Spouse Caregiver staying overnight: No Housing: House Do you presently have visiting nurse or other home services: Yes Tobacco History: Patient Tobacco Use Status: Former Tobacco user Advance Directives: Advance Directives Date on File: 03/15/22 Occupation Assessmet: service: Yes Current occupational status: disabled Home Medications and Allergies Current Medications: Current Medications Acetaminophen (Acetaminophen 325 Mg Tablet) 650 mg PO Q6H PRN PRN Reason: Pain, Mild (Pain Scale 1-3) Diphenhydramine HCl 25 mg/ (Sodium Chloride) 50.5 mls @ 200 mls/hr IV ONCE [facility] Last Infusion: 03/15/22 14:25 Dose: Infused Ampicillin Sodium/Sulbactam (Sodium 3 gm/ Sodium Chloride) 100 mls @ 200 mls/hr IV Q12H [facility] Ondansetron HCl (Ondansetron Hcl 4 Mg/2 Ml Vial) 4 mg IVPUSH Q8H PRN PRN Reason: Nausea and Vomiting Pantoprazole Sodium (Pantoprazole Sodium 40 Mg/10 Ml Vial) 40 mg IVPUSH BID@0630,1630 [facility] Last Admin: 03/16/22 05:00 Dose: 40 mg Pharmacy Consult (Consult Rx Perform Med Rec) 1 each MISCELLANE ONCE PRN PRN Reason: Consult order Sodium Chloride (0.9 % Sodium Chloride Flush 3 Ml Syringe) 3 ml IVFLUSH QSHIFT [facility] Last Admin: 03/15/22 23:35 Dose: 3 ml Home Medications Medication Instructions Recorded Confirmed Type acetaminophen 325 mg tablet 650 mg PO Q4H PRN Pain 03/15/22 03/15/22 History allopurinol 300 mg tablet 300 mg PO DAILY 03/15/22 03/15/22 History amlodipine 5 mg tablet 5 mg PO DAILY PRN Blood Pressure 03/15/22 03/15/22 History amoxicillin 875 mg-potassium 1 tab PO BID 03/15/22 03/15/22 History clavulanate 125 mg tablet atorvastatin 40 mg tablet 40 mg PO DAILY@2100 03/15/22 03/15/22 History cholecalciferol (vitamin D3) 50 50 mcg PO DAILY 03/15/22 03/15/22 History mcg (2,000 unit) tablet cyanocobalamin (vitamin B-12) 250 250 mcg PO BID 03/15/22 03/15/22 History mcg tablet folic acid 1 mg tablet 1 mg PO DAILY 03/15/22 03/15/22 History gabapentin 300 mg capsule 300 mg PO BID@0900,1300 03/15/22 03/15/22 History gabapentin 600 mg tablet 600 mg PO DAILY@2100 03/15/22 03/15/22 History levothyroxine 100 mcg tablet 100 mcg PO DAILY 03/15/22 03/15/22 History lidocaine-prilocaine 2.5 %-2.5 % 1 appl topical ONCE PRN Painful 03/15/22 03/15/22 History topical cream Procedure midodrine 5 mg tablet 5 mg PO TID PRN Blood Pressure 03/15/22 03/15/22 History mirtazapine 7.5 mg tablet 7.5 mg PO BEDTIME 03/15/22 03/15/22 History prochlorperazine maleate 10 mg 10 mg PO Q6H PRN Nausea 03/15/22 03/15/22 History tablet venetoclax 100 mg tablet 400 mg PO DAILY 03/15/22 03/15/22 History (Venclexta) Allergies Allergy/AdvReac Type Severity Reaction Status Date / Time Iodinated Contrast Media Allergy Hives Verified 03/15/22 10:15 [IV Contrast Dye] Physical Exam Vital signs: Vital Signs Temp 99.6 F 03/16/22 07:50 Pulse 99 03/16/22 07:50 Resp 18 03/16/22 07:50 BP 102/67 03/16/22 07:50 Pulse Ox 91 L 03/16/22 07:50 O2 Del Method 03/16/22 07:50 Intake & Output 03/15/22 03/16/22 03/16/22 18:59 06:59 18:59 Intake Total 787.5 / 1397.5 610 / 1397.5 Output Total 200 / 200 Balance 787.5 / 1397.5 610 / 1397.5 -200 / -200 Urine Output (Average ml/kg/hr) 0.28 Intake: Intake, Oral Amount 260 / 260 Intake (Blood Product) Amount 737 / 1087 350 / 1087 Aph Plts Irr Pas Lvds (Ea153) 387 / 387 Unit [id number] Red Blood Cells (E0382) Unit 350 / 350 [id number] Red Blood Cells (E0382) Unit 350 / 350 [id number] Intake, IV Amount 50.5 / 50.5 diphenhydrAMINE HCL 25 mg In 0. 50.5 / 50.5 9 % Sodium Chloride 50 ml @ 200 mls/hr IV ONCE ADDIE Rx#: [id number] Output: Output, Urine Amount 200 / 200 Other: Dinner % Eaten 0% Number of Unmeasured Voids 0 Urine Urinal Urine Color Yellow Stool Amount Scant Stool Color Silva Weight 59.874 kg 59.971 kg Weight in Grams 27061 Weight 59.971 kg - Constitutional Present: no acute distress, chronically ill appearing - Routine HEENT Exam Head: Present: atraumatic Eye: Present: conjunctivae pale - Routine Neck Exam Present: supple. Absent: lymphadenopathy - Routine Respiratory Exam Absent: accessory muscle use - Routine Cardiovascular Exam Cardiovascular: Present: S1, S2 - Routine Abdominal Exam Absent: mass - Routine Extremities Exam Present: normal inspection Hem/Onc Consult Result - Labs CBC & Chem 7: 03/16/22 06:48 03/16/22 06:48 Labs: Short CBC 03/15/22 03/16/22 Range/Units 09:27 06:48 WBC 40.8 H* 43.7 H* (4.8-10.8) X10*3/uL Hgb 7.7 L 9.4 L D (14.0-18.0) g/dl Hct 23.3 L 27.8 L (42.0-52.0) % Plt Count 20 L* 20 L* (160-400) X10*3/uL BMP 03/15/22 03/16/22 09:27 06:48 Sodium 140 140 Potassium 4.4 4.1 Chloride 102 104 Carbon Dioxide 15 L 17 L BUN 61 H 82 H D Creatinine 2.34 H 2.57 H Calcium 9.0 8.2 L D Liver Function 03/15/22 03/16/22 Range/Units 09:27 06:48 Total Bilirubin 1.0 1.8 H (0.0-1.0) mg/dL Direct Bilirubin 0.6 H 1.3 H (0.0-0.5) mg/dL AST 83 H 69 H (5-37) U/L ALT 48 H 43 H (0-40) U/L Alkaline Phosphatase 149 H 119 H D (39-117) U/L Albumin 3.1 L 2.8 L (3.5-5.0) g/dL Assessment and Plan Patient Active problem list reviewed?: Yes (1) MDS (myelodysplastic syndrome), high grade Status: Acute Assessment and plan: 1. This is a 71-year-old male with therapy related MDS on chemotherapy presenting with acute GI bleeding. He was diagnosed in June 2021 and he received 5 months of therapy with decitabine. Treatment was interrupted because of abscess /infection which necessitated multiple surgical procedures at [facility]. There has been some concern about transformation to acute leukemia, his laborer beam house Dr. Rojas at [facility] performed a bone marrow biopsy just last week. He was supposed to change therapy to venetoclax and 5 azacitidine. Blood work shows acute renal insufficiency with elevated LDH raising concern for tumor lysis syndrome. Uric acid level is pending. He has about 1+ schistocytes and 16% blasts. 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 He has received blood and platelet transfusion. I recommend IV fluids and Nephrology consultation. He has solitary kidney, he had right nephrectomy in 2016 for renal cell carcinoma. If he is hemodynamically stable and does not have any further GI bleeding, he may need transfer to tertiary center for treatment of acute leukemia. I have spoken to his laborer beam house Dr. Rojas and updated him about the patient. I have explained to patient and his of above concerns and the guarded prognosis overall. I thank you for this consultation. - Time Spent With Patient Time Spent with Patient (in minutes): 20
[2022-03-16] MEDS: Ampicillin Sodium/Sulbactam Na 3 GM in 0.9 % Sodium Chloride 100 ML IV ×2 (09:29→21:06)
[2022-03-16] MEDS: 0.9 % Sodium Chloride 1,000 ML 100 ML IVCONT (09:59)
[2022-03-16 11:09] LABS: Phosphorus 4.5 mg/dL (2.7-4.5)
[2022-03-16] MEDS: Sodium Bicarbonate 8.4% 150 MEQ in Dextrose 5 % 850 ML 100 MEQ IV (11:59)
--- NOTE | 2022-03-16 12:55 | CONS_ITS ---
DATE OF SERVICE: 03/16/2022 REASON FOR CONSULTATION: I was asked to see the patient to assist in evaluation management of patient's acute kidney injury as reflected by a BUN and creatinine today of 82 and 2.57. Today, on admission, those were 61 and 2.34, and I was able to track down his serum creatinine from [facility], and it has been 0.9 to 1.0 for the past 6 months. HISTORY OF PRESENT ILLNESS: Patient normally gets all his medical care at [facility]. He is unable to communicate and his is at the bedside. He has had a history of laryngeal CA status post chemo and laryngectomy and again his is very involved and providing information. He is under the care of Dr. Rojas, the oncologist at [facility] and apparently has a myelodysplastic syndrome with blasts and has been getting chemo therapy. As per his , his last chemo was back in January and he was due to get more chemo. I think the next week or so. In fact, he was supposed to start on allopurinol a few days ago in preparation of getting chemo. The patient has medical history of the laryngeal CA status post chemo and laryngectomy back in 2017, 2018; renal cell CA, status post nephrectomy in 2016. The myelodysplastic syndrome with blasts, hypertension, hypothyroidism, hyperlipidemia as his chronic medical problems. He presented to the hospital by ambulance with dark vomitus. Apparently, the ambulance brought him here instead of [facility]. Overall, he is feeling better since he came to the hospital. As mentioned, his labs on admission showed a BUN and creatinine of 61 and 2.34 with a bicarb of 15, anion gap 27. This morning, his BUN and creatinine are 81 and 2.57. His uric acid level today of 21, calcium 8.2. His hemoglobin was 7.7 on admission with a white blood count of 40.8 with blasts. Platelet count was 20,000. PAST MEDICAL HISTORY: As mentioned above. There is also mention made of peripheral artery disease, details are unclear. MEDICATIONS: His medications on admission are noted in the admitting notes and there is mention made of Allopurinol, but the says that he has not been taking it. He apparently has been on amlodipine, amoxicillin, Lipitor, Neurontin, Synthroid, midodrine. Current medications are noted in the MAR. ALLERGIES: THERE IS MENTION OF ALLERGIES TO IODINATED CONTRAST MEDIA. OTHERWISE, NO ALLERGIES. SOCIAL HISTORY: He currently drinks alcohol on occasions. He is not an active smoker. REVIEW OF SYSTEMS: As noted above. PHYSICAL EXAMINATION: GENERAL: Malnourished appearing gentleman, fairly comfortable. VITAL SIGNS: Blood pressure 104/60 with a heart rate in the 90s, unclear what his urine output is. LUNGS: Breath sounds bilaterally. CARDIAC: Regular rate. ABDOMEN: Soft. EXTREMITIES: Shows no edema. LABORATORY DATA: As mentioned above. Hemoglobin 9.4, hematocrit 27.8, white blood cell count 43.7 with blasts, platelet count 20,000. Chemistry shows sodium 40, potassium 4.1, chloride 4, bicarb 17, anion gap 23, BUN 82, creatinine 2.57. As mentioned, baseline creatinine is 1.0, uric acid level is 21, calcium 8.2, total bilirubin 1.8, albumin of 2.8, LDH was 4771. IMPRESSION: 71-YEAR-OLD WITH ACUTE KIDNEY INJURY, SEVERE HYPERURICEMIA, DEHYDRATION, GASTROINTESTINAL BLEED IN THE BACKDROP OF MULTIPLE MEDICAL PROBLEMS INCLUDING MYELODYSPLASTIC SYNDROME AND RECENT CHEMO BACK IN JANUARY. 1. Acute kidney injury. This is most likely renal hypoperfusion along with hyperuricemia and tumor lysis syndrome. The focus of care is to hydrate him well and treat his hyperuricemia, to see if we can turn things around. He has a markedly elevated LDH and uric acid level, which fails the criteria for tumor lysis syndrome. We will check a phosphorus level. Unfortunately, he made need dialysis depending on his response to treatment of the hyperuricemia with rasburicase. We will need to get a G6PD level emergently and then given him the Rasburicase along with allopurinol and IV hydration. 2. 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 His last chemo was back in January. We will try and track down what his uric acid level was previously. 3. Pancytopenia with history of myelodysplastic syndrome. 4. Anion gap metabolic acidosis. We will check a lactic level along with monitoring his gap, which actually is coming down, bicarb is coming up. We will continue with IV sodium bicarb infusion. SUGGESTIONS: At this time: 1. Stat G6PD qualitative level and then start him on rasburicase. 2. Start him on allopurinol. 3. Obtain urine studies including urine sodium, urine creatinine to calculate fractional excretion of sodium. 4. Obtain ultrasound of the kidneys to make sure there is no obstruction given he only has a solitary functioning kidney. 5. Start him on IV sodium bicarb infusion. 6. We will follow the patient closely with the team and try and avoid doing dialysis. I have asked them to add on a phosphate level to his previous labs. 7. We will follow the patient closely with the team. MD YAKELIN Jones/MARLENY / [id number]
--- NOTE | 2022-03-16 13:04 | P.PNUR_ITS ---
Subjective Subjective Date of Service: 03/16/22 Interval history: Consulting complaint acute kidney insult requesting Stephen catheter 71-year-old male admitted with upper GI bleed. Found to have acute on chronic kidney insult with creatinine of 2.6. Per history has had 1 kidney removed at some point in time for cancer. Urology consult for catheter placement to allow follow-up strict I's and O's Stephen catheter placed without difficulty. Sixteen [place]. 100 cc residual. Concentrated urine. Physical Exam Vital Signs: Vital Signs: Last Vital Signs Temp 99.3 F 03/16/22 11:38 Pulse 96 03/16/22 11:38 Resp 20 03/16/22 11:38 BP 102/59 L 03/16/22 11:38 Pulse Ox 93 03/16/22 11:38 O2 Del Method 03/16/22 11:38 BMI result Body Mass Index 20.7 Const: General: cooperative, healthy appearing, comfortable and no acute distress Orientation/consciousness: patient oriented x3 HEENT: Face and sinus: Yes normal facial exam Mouth: moist mucous membranes Neck: Neck: Yes normal visual inspection, Yes full ROM and Yes trachea midline Chest: Chest palpation & inspection: normal inspection of the chest Resp: Effort & Inspection: normal respiratory effort, able to speak in complete sentences and no respiratory distress GI: Inspection: Yes normal to inspection Back/Spine/Pelvis: Cervical Spine: normal cervical lordosis Thoracic/Lumbar Spine: thoracic and lumbar spine normal to inspection Skin: General skin exam: no rashes or lesions noted Neuro: General: patient oriented x3, tone normal and moves all extremities Extrem: General: Yes normal to inspection and Yes capillary refill normal Urology Results Labs CBC & Chem 7: 03/16/22 06:48 03/16/22 06:48 Labs: Laboratory Results - last 24 hr 03/15/22 03/16/22 03/16/22 09:25 06:48 06:48 WBC 43.7 H* RBC 3.06 L Hgb 9.4 L D Hct 27.8 L MCV 90.8 MCH 30.7 MCHC 33.8 RDW 15.7 Plt Count 20 L* MPV Not Reportable Immature Gran % (Auto) Cancelled Neut % (Auto) Cancelled Lymph % (Auto) Cancelled [place] % (Auto) Cancelled Eos % (Auto) Cancelled Baso % (Auto) Cancelled Lymph # (Auto) Cancelled [place] # (Auto) Cancelled Eos # (Auto) Cancelled Baso # (Auto) Cancelled Abs Immat Gran (auto) Cancelled Absolute Neuts (auto) Cancelled Absolute Nucleated RBC 0.220 H Nucleated RBC % (auto) 0.5 H Neutrophils % (Manual) 53 Band Neutrophils % 1 L Lymphocytes % (Manual) 11 L Atypical Lymphs % (Man) 11 H Monocytes % (Manual) 5 Basophils % (Manual) 1 Metamyelocytes % 2 Blast Cells % (Manual) 16 Abs Neuts (Manual) 23.6 H Lymphocytes # (Manual) 4.8 Atyp Lymphs # (Manual) 4.8 Monocytes # (Manual) 2.2 H Basophils # (Manual) 0.4 H Metamyelocytes # 0.9 Blast Cells # 7.0 Nucleated RBCs 6 H Platelet Estimate DECREASED Large Platelets PRESENT Plt Morphology Comment NORMAL RBC Morphology NOTED Polychromasia 1+ (0-2) Hypochromasia 1+ (5-14) Ovalocytes 1+ (5-14) Alex Cells 1+ (0-2) Acanthocytes (Spur) 1+ (0-2) Schistocytes 1+ (0-2) Absolute Retic Percent Retic Immature Retic Fraction Retic Hgb Equivalent PT INR APTT Fibrinogen Sodium 140 Potassium 4.1 Chloride 104 Carbon Dioxide 17 L Anion Gap 23 H BUN 82 H D Creatinine 2.57 H Estim Creat Clear Calc 23.0 Estimated GFR 25 Random Glucose 85 Uric Acid Calcium 8.2 L D Phosphorus Total Bilirubin Direct Bilirubin AST ALT Alkaline Phosphatase Lactate Dehydrogenase Total Creatine Kinase Total Protein Albumin Blood Type A Positive Antibody Screen NEGATIVE Antibody Identification Negative MYRA, Polyspecific NEGATIVE Positive MYRA Work-up TNP Crossmatch See Detail Crossmatch (AHG) See Detail Enhanced Crossmatch See Detail 03/16/22 03/16/22 03/16/22 06:48 06:48 06:48 WBC RBC Hgb Hct MCV MCH MCHC RDW Plt Count MPV Immature Gran % (Auto) Neut % (Auto) Lymph % (Auto) [place] % (Auto) Eos % (Auto) Baso % (Auto) Lymph # (Auto) [place] # (Auto) Eos # (Auto) Baso # (Auto) Abs Immat Gran (auto) Absolute Neuts (auto) Absolute Nucleated RBC Nucleated RBC % (auto) Neutrophils % (Manual) Band Neutrophils % Lymphocytes % (Manual) Atypical Lymphs % (Man) Monocytes % (Manual) Basophils % (Manual) Metamyelocytes % Blast Cells % (Manual) Abs Neuts (Manual) Lymphocytes # (Manual) Atyp Lymphs # (Manual) Monocytes # (Manual) Basophils # (Manual) Metamyelocytes # Blast Cells # Nucleated RBCs Platelet Estimate Large Platelets Plt Morphology Comment RBC Morphology Polychromasia Hypochromasia Ovalocytes Alex Cells Acanthocytes (Spur) Schistocytes Absolute Retic 0.022 L Percent Retic 0.7 Immature Retic Fraction 3.6 Retic Hgb Equivalent 39.5 H PT 19.4 H INR 1.7 H APTT 27.7 Cancelled Fibrinogen 518 Cancelled Sodium Potassium Chloride Carbon Dioxide Anion Gap BUN Creatinine Estim Creat Clear Calc Estimated GFR Random Glucose Uric Acid Calcium Phosphorus Total Bilirubin Direct Bilirubin AST ALT Alkaline Phosphatase Lactate Dehydrogenase Total Creatine Kinase Total Protein Albumin Blood Type Antibody Screen Antibody Identification MYRA, Polyspecific Positive MYRA Work-up Crossmatch Crossmatch (AHG) Enhanced Crossmatch 03/16/22 06:48 WBC RBC Hgb Hct MCV MCH MCHC RDW Plt Count MPV Immature Gran % (Auto) Neut % (Auto) Lymph % (Auto) [place] % (Auto) Eos % (Auto) Baso % (Auto) Lymph # (Auto) [place] # (Auto) Eos # (Auto) Baso # (Auto) Abs Immat Gran (auto) Absolute Neuts (auto) Absolute Nucleated RBC Nucleated RBC % (auto) Neutrophils % (Manual) Band Neutrophils % Lymphocytes % (Manual) Atypical Lymphs % (Man) Monocytes % (Manual) Basophils % (Manual) Metamyelocytes % Blast Cells % (Manual) Abs Neuts (Manual) Lymphocytes # (Manual) Atyp Lymphs # (Manual) Monocytes # (Manual) Basophils # (Manual) Metamyelocytes # Blast Cells # Nucleated RBCs Platelet Estimate Large Platelets Plt Morphology Comment RBC Morphology Polychromasia Hypochromasia Ovalocytes Alex Cells Acanthocytes (Spur) Schistocytes Absolute Retic Percent Retic Immature Retic Fraction Retic Hgb Equivalent PT INR APTT Fibrinogen Sodium Potassium Chloride Carbon Dioxide Anion Gap BUN Creatinine Estim Creat Clear Calc Estimated GFR Random Glucose Uric Acid 21.0 H Calcium Phosphorus 4.5 Total Bilirubin 1.8 H Direct Bilirubin 1.3 H AST 69 H ALT 43 H Alkaline Phosphatase 119 H D Lactate Dehydrogenase 4771 H Total Creatine Kinase 76 Total Protein 5.7 L Albumin 2.8 L Blood Type Antibody Screen Antibody Identification MYRA, Polyspecific Positive MYRA Work-up Crossmatch Crossmatch (AHG) Enhanced Crossmatch Urology Procedures Catheter Insertion (Urinary) Date of insertion: 03/16/22 Time of insertion: 13:06 Replacement of catheter present on admission: No Reason for placing: Measure accurate output Bladder scan/ultrasound used before catheterization: No Estimated amount of urine (mLs): 100 Antiseptic solution prep: Povidone-Iodine Topical anesthesia used: Yes Catheter type/location: 2-way Urethral Size ([place]): 16 Catheter balloon size (mL): 10 Results: successfully catheterized-immediate flow Progress Note: A&P Time Spent With Patient Time: Total time spent is greater than 50% in coordination of care (as documented) at patient's floor/unit and/or counseling patient: Progress Note: Quality Stroke Does the patient have a stroke diagnosis?: No
--- NOTE | 2022-03-16 13:06 | P.CONAN_ITS ---
HPI - Anesthesia Eval Consult details Narrative: 71 yo male patient for EGD with gold probe PMFSH Active Problems Active Problems: All Active Problems (Updated 03/16/22 @ 13:16 by Anabel Waggoner MD) Acute GI bleeding (Acute) Acute kidney injury BUN/Cr - 82/2.57 Tumor lysis syndrome Pancytopenia with MDS (myelodysplastic syndrome), high grade (Acute)S/p transfusion 2u PRBC and 1 u platelets yesterday for Hgb 7.7 and Plt count 20. Repeat Hgb/ Plt today 03/16/22 9.4/20- received 1u platelets today PT/INR 19.4/1.7 MDS on -chemotherapy- decitabine ? transformation to acute leukemia Anion gap metabolic acidosis H/o Roght nephrectomy H/o laryngectomy- tracheostomy stoma in place PVD ? h/o Right and Left fempop bypass Past Medical History Medical History Dyslipidemia Hypothyroidism Laryngeal cancer MDS (myelodysplastic syndrome) Peripheral arterial disease Renal cell carcinoma Tracheostomy in place Family History Family history of problems with anesthesia: No Surgical History Surgical History H/O laryngectomy History of nephrectomy S/P arterial stent History of Problems with Anesthesia: No Social History Social History Household Members: Spouse Caregiver staying overnight: No Housing: House Do you presently have visiting nurse or other home services: Yes Alcohol intake: current Alcohol intake frequency: holidays/special occasions only Patient Tobacco Use Status: Former Tobacco user Quit Date: 7 years ago Advance Directives Date on File: 03/15/22 service: Yes Current occupational status: disabled Meds Allergies Allergy/AdvReac Type Severity Reaction Status Date / Time Iodinated Contrast Media Allergy Hives Verified 03/15/22 10:15 [IV Contrast Dye] Active Medications: Current Medications Acetaminophen (Acetaminophen 325 Mg Tablet) 650 mg PO Q6H PRN PRN Reason: Pain, Mild (Pain Scale 1-3) Allopurinol (Allopurinol 100 Mg Tablet) 100 mg PO Q8H ADDIE Diphenhydramine HCl 25 mg/ (Sodium Chloride) 50.5 mls @ 200 mls/hr IV ONCE ADDIE Last Infusion: 03/15/22 14:25 Dose: Infused Ampicillin Sodium/Sulbactam (Sodium 3 gm/ Sodium Chloride) 100 mls @ 200 mls/hr IV Q12H [facility] Last Infusion: 03/16/22 10:00 Dose: Infused Sodium Bicarbonate 150 meq/ (Dextrose) 1,000 mls @ 100 mls/hr IV .Q10H [facility] Last Admin: 03/16/22 11:59 Dose: 100 mls/hr Ondansetron HCl (Ondansetron Hcl 4 Mg/2 Ml Vial) 4 mg IVPUSH Q8H PRN PRN Reason: Nausea and Vomiting Pantoprazole Sodium (Pantoprazole Sodium 40 Mg/10 Ml Vial) 40 mg IVPUSH BID@0630,1630 [facility] Last Admin: 03/16/22 05:00 Dose: 40 mg Pharmacy Consult (Consult Rx Perform Med Rec) 1 each MISCELLANE ONCE PRN PRN Reason: Consult order Sodium Chloride (0.9 % Sodium Chloride Flush 3 Ml Syringe) 3 ml IVFLUSH QSHIFT [facility] Last Admin: 03/16/22 09:32 Dose: Not Given Tamsulosin HCl (Tamsulosin Hcl 0.4 Mg Capsule) 0.4 mg PO DAILY [facility] Home Medications Medication Instructions Recorded Confirmed Last Taken Type acetaminophen 325 mg tablet 650 mg PO Q4H PRN Pain 03/15/22 03/15/22 Unknown History allopurinol 300 mg tablet 300 mg PO DAILY 03/15/22 03/15/22 Unknown History amlodipine 5 mg tablet 5 mg PO DAILY PRN Blood Pressure 03/15/22 03/15/22 Unknown History amoxicillin 875 mg-potassium 1 tab PO BID 03/15/22 03/15/22 03/15/22 History clavulanate 125 mg tablet atorvastatin 40 mg tablet 40 mg PO DAILY@2100 03/15/22 03/15/22 03/14/22 History cholecalciferol (vitamin D3) 50 50 mcg PO DAILY 03/15/22 03/15/22 03/15/22 History mcg (2,000 unit) tablet cyanocobalamin (vitamin B-12) 250 250 mcg PO BID 03/15/22 03/15/22 03/15/22 History mcg tablet folic acid 1 mg tablet 1 mg PO DAILY 03/15/22 03/15/22 03/15/22 History gabapentin 300 mg capsule 300 mg PO BID@0900,1300 03/15/22 03/15/22 03/15/22 History gabapentin 600 mg tablet 600 mg PO DAILY@2100 03/15/22 03/15/22 03/14/22 History levothyroxine 100 mcg tablet 100 mcg PO DAILY 03/15/22 03/15/22 03/15/22 History lidocaine-prilocaine 2.5 %-2.5 % 1 appl topical ONCE PRN Painful 03/15/22 03/15/22 Unknown History topical cream Procedure midodrine 5 mg tablet 5 mg PO TID PRN Blood Pressure 03/15/22 03/15/22 Unknown History mirtazapine 7.5 mg tablet 7.5 mg PO BEDTIME 03/15/22 03/15/22 03/14/22 History prochlorperazine maleate 10 mg 10 mg PO Q6H PRN Nausea 03/15/22 03/15/22 Unknown History tablet venetoclax 100 mg tablet 400 mg PO DAILY 03/15/22 03/15/22 Unknown History (Venclexta) Exam Exam Date and Time: March 16, 2022 1306 Height,Weight and Vital Signs: Height 5 ft 7 in Weight 59.971 kg Last Vital Signs Temp 98.4 F 03/16/22 12:54 Pulse 98 03/16/22 12:54 Resp 18 03/16/22 12:54 BP 112/65 03/16/22 12:54 Pulse Ox 92 03/16/22 12:54 O2 Del Method 03/16/22 12:54 Pertinent Lab Results Pertinent Lab Results: Laboratory Tests 03/15/22 03/15/22 03/15/22 09:18 09:25 09:27 WBC 40.8 H* RBC 2.61 L Hgb 7.7 L Hct 23.3 L MCV 89.3 MCH 29.5 MCHC 33.0 RDW 16.3 H Plt Count 20 L* MPV Not Reportable Immature Gran % (Auto) Cancelled Neut % (Auto) Cancelled Lymph % (Auto) Cancelled [place] % (Auto) Cancelled Eos % (Auto) Cancelled Baso % (Auto) Cancelled Lymph # (Auto) Cancelled [place] # (Auto) Cancelled Eos # (Auto) Cancelled Baso # (Auto) Cancelled Abs Immat Gran (auto) Cancelled Absolute Neuts (auto) Cancelled Absolute Nucleated RBC 0.310 H Nucleated RBC % (auto) 0.8 H Neutrophils % (Manual) 61 Band Neutrophils % 4 Lymphocytes % (Manual) 11 L Atypical Lymphs % (Man) 4 Monocytes % (Manual) 3 Basophils % (Manual) Metamyelocytes % Promyelocytes % 1 Blast Cells % (Manual) 16 Abs Neuts (Manual) 26.5 H Lymphocytes # (Manual) 4.5 Atyp Lymphs # (Manual) 1.6 Monocytes # (Manual) 1.2 Basophils # (Manual) Metamyelocytes # Promyelocytes # 0.4 Blast Cells # 6.5 Nucleated RBCs 7 H Platelet Estimate DECREASED Large Platelets PRESENT Plt Morphology Comment NOTE RBC Morphology NOTED Polychromasia Hypochromasia Microcytosis 1+ (5-14) Ovalocytes 1+ (5-14) [place] Cells 2+ (3-5) Acanthocytes (Spur) Schistocytes 1+ (0-2) Smear Path Review SEE NOTE Absolute Retic Percent Retic Immature Retic Fraction Retic Hgb Equivalent PT INR APTT Fibrinogen Sodium Potassium Chloride Carbon Dioxide Anion Gap BUN Creatinine Estim Creat Clear Calc Estimated GFR Random Glucose Uric Acid Calcium Phosphorus Total Bilirubin Direct Bilirubin AST ALT Alkaline Phosphatase Lactate Dehydrogenase Total Creatine Kinase Troponin I High Sens Total Protein Albumin Lipase Ethyl Alcohol COVID-19 (ZACHARIAH) Negative COVID-19 Clin Com See Note Blood Type A Positive Antibody Screen NEGATIVE Antibody Identification Negative MYRA, Polyspecific NEGATIVE Positive MYRA Work-up TNP Crossmatch See Detail Crossmatch (AHG) See Detail Enhanced Crossmatch See Detail 03/15/22 03/15/22 03/15/22 09:27 09:27 09:27 WBC RBC Hgb Hct MCV MCH MCHC RDW Plt Count MPV Immature Gran % (Auto) Neut % (Auto) Lymph % (Auto) [place] % (Auto) Eos % (Auto) Baso % (Auto) Lymph # (Auto) [place] # (Auto) Eos # (Auto) Baso # (Auto) Abs Immat Gran (auto) Absolute Neuts (auto) Absolute Nucleated RBC Nucleated RBC % (auto) Neutrophils % (Manual) Band Neutrophils % Lymphocytes % (Manual) Atypical Lymphs % (Man) Monocytes % (Manual) Basophils % (Manual) Metamyelocytes % Promyelocytes % Blast Cells % (Manual) Abs Neuts (Manual) Lymphocytes # (Manual) Atyp Lymphs # (Manual) Monocytes # (Manual) Basophils # (Manual) Metamyelocytes # Promyelocytes # Blast Cells # Nucleated RBCs Platelet Estimate Large Platelets Plt Morphology Comment RBC Morphology Polychromasia Hypochromasia Microcytosis Ovalocytes Alex Cells Acanthocytes (Spur) Schistocytes Smear Path Review Absolute Retic Percent Retic Immature Retic Fraction Retic Hgb Equivalent PT INR APTT Fibrinogen Sodium 140 Potassium 4.4 Chloride 102 Carbon Dioxide 15 L Anion Gap 27 H BUN 61 H Creatinine 2.34 H Estim Creat Clear Calc 25.2 Estimated GFR 28 Random Glucose 116 H Uric Acid Calcium 9.0 Phosphorus Total Bilirubin 1.0 Direct Bilirubin 0.6 H AST 83 H ALT 48 H Alkaline Phosphatase 149 H Lactate Dehydrogenase Total Creatine Kinase Troponin I High Sens 50.7 H Total Protein 6.3 L Albumin 3.1 L Lipase 14 Ethyl Alcohol < 10 COVID-19 (ZACHARIAH) COVID-19 Clin Com Blood Type Antibody Screen Antibody Identification MYRA, Polyspecific Positive MYRA Work-up Crossmatch Crossmatch (AHG) Enhanced Crossmatch 03/16/22 03/16/22 03/16/22 06:48 06:48 06:48 WBC 43.7 H* RBC 3.06 L Hgb 9.4 L D Hct 27.8 L MCV 90.8 MCH 30.7 MCHC 33.8 RDW 15.7 Plt Count 20 L* MPV Not Reportable Immature Gran % (Auto) Cancelled Neut % (Auto) Cancelled Lymph % (Auto) Cancelled [place] % (Auto) Cancelled Eos % (Auto) Cancelled Baso % (Auto) Cancelled Lymph # (Auto) Cancelled [place] # (Auto) Cancelled Eos # (Auto) Cancelled Baso # (Auto) Cancelled Abs Immat Gran (auto) Cancelled Absolute Neuts (auto) Cancelled Absolute Nucleated RBC 0.220 H Nucleated RBC % (auto) 0.5 H Neutrophils % (Manual) 53 Band Neutrophils % 1 L Lymphocytes % (Manual) 11 L Atypical Lymphs % (Man) 11 H Monocytes % (Manual) 5 Basophils % (Manual) 1 Metamyelocytes % 2 Promyelocytes % Blast Cells % (Manual) 16 Abs Neuts (Manual) 23.6 H Lymphocytes # (Manual) 4.8 Atyp Lymphs # (Manual) 4.8 Monocytes # (Manual) 2.2 H Basophils # (Manual) 0.4 H Metamyelocytes # 0.9 Promyelocytes # Blast Cells # 7.0 Nucleated RBCs 6 H Platelet Estimate DECREASED Large Platelets PRESENT Plt Morphology Comment NORMAL RBC Morphology NOTED Polychromasia 1+ (0-2) Hypochromasia 1+ (5-14) Microcytosis Ovalocytes 1+ (5-14) [place] Cells 1+ (0-2) Acanthocytes (Spur) 1+ (0-2) Schistocytes 1+ (0-2) Smear Path Review Absolute Retic Percent Retic Immature Retic Fraction Retic Hgb Equivalent PT 19.4 H INR 1.7 H APTT 27.7 Fibrinogen 518 Sodium 140 Potassium 4.1 Chloride 104 Carbon Dioxide 17 L Anion Gap 23 H BUN 82 H D Creatinine 2.57 H Estim Creat Clear Calc 23.0 Estimated GFR 25 Random Glucose 85 Uric Acid Calcium 8.2 L D Phosphorus Total Bilirubin Direct Bilirubin AST ALT Alkaline Phosphatase Lactate Dehydrogenase Total Creatine Kinase Troponin I High Sens Total Protein Albumin Lipase Ethyl Alcohol COVID-19 (ZACHARIAH) COVID-19 Clin Com Blood Type Antibody Screen Antibody Identification MYRA, Polyspecific Positive MYRA Work-up Crossmatch Crossmatch (AHG) Enhanced Crossmatch 03/16/22 03/16/22 03/16/22 06:48 06:48 06:48 WBC RBC Hgb Hct MCV MCH MCHC RDW Plt Count MPV Immature Gran % (Auto) Neut % (Auto) Lymph % (Auto) [place] % (Auto) Eos % (Auto) Baso % (Auto) Lymph # (Auto) [place] # (Auto) Eos # (Auto) Baso # (Auto) Abs Immat Gran (auto) Absolute Neuts (auto) Absolute Nucleated RBC Nucleated RBC % (auto) Neutrophils % (Manual) Band Neutrophils % Lymphocytes % (Manual) Atypical Lymphs % (Man) Monocytes % (Manual) Basophils % (Manual) Metamyelocytes % Promyelocytes % Blast Cells % (Manual) Abs Neuts (Manual) Lymphocytes # (Manual) Atyp Lymphs # (Manual) Monocytes # (Manual) Basophils # (Manual) Metamyelocytes # Promyelocytes # Blast Cells # Nucleated RBCs Platelet Estimate Large Platelets Plt Morphology Comment RBC Morphology Polychromasia Hypochromasia Microcytosis Ovalocytes [place] Cells Acanthocytes (Spur) Schistocytes Smear Path Review Absolute Retic 0.022 L Percent Retic 0.7 Immature Retic Fraction 3.6 Retic Hgb Equivalent 39.5 H PT INR APTT Cancelled Fibrinogen Cancelled Sodium Potassium Chloride Carbon Dioxide Anion Gap BUN Creatinine Estim Creat Clear Calc Estimated GFR Random Glucose Uric Acid 21.0 H Calcium Phosphorus 4.5 Total Bilirubin 1.8 H Direct Bilirubin 1.3 H AST 69 H ALT 43 H Alkaline Phosphatase 119 H D Lactate Dehydrogenase 4771 H Total Creatine Kinase 76 Troponin I High Sens Total Protein 5.7 L Albumin 2.8 L Lipase Ethyl Alcohol COVID-19 (ZACHARIAH) COVID-19 Clin Com Blood Type Antibody Screen Antibody Identification MYRA, Polyspecific Positive MYRA Work-up Crossmatch Crossmatch (AHG) Enhanced Crossmatch Narrative Narrative: S/p laryngectomy. Tracheostomy stoma in place. Blood clots around stoma and some old blood visible within stoma Airway Heart: RRR Lungs: CTAB Assessment and Plan Assessment Anesthesia Assessment: Anesthesia Plan Discussed and Chart Reviewed Final Anesthetic Review Family History of Problems with Anesthesia: No History of Problems with Anesthesia: No NPO: Yes ASA Class: IV and Emergency Final Preanesthetic Review: No Changes in Pt Med Stat, Meds/Allgs Chart Reviewed, Consent Obtained/Reviewed and Anes Risks/Benef Reviewed Patient Risk: High Procedure Risk: Intermediate Assessment/Block/Sedation in SS: Assess/Block/Sedation-SS Anesthetic Plan Anesthetic Plan: GA and MAC: (Will plan for MAC anesthesia. GA back up with intubation of stoma under fiberoptic visualization) Disposition: Standard PACU and Inp. Admit - IMC
[2022-03-16 13:32] LABS: Appearance Urine Clear; Color Urine Yellow; Glucose Urine UA Negative (Negative); Leukocyte Esterase Urine Negative (Negative); Nitrite Urine Negative (Negative); Specific Gravity - Urine 1.025 (1.005-1.025); UMIC TRIGGER UA YES; Urine Blood Trace (Negative); Urine Ketones Trace mg/dL (Negative); Urine Protein Negative (Neg-Trace)
[2022-03-16 13:49] LABS: Schistocytes 1+ (0-2) /OIF
[2022-03-16 14:06] LABS: WBC Urine 0-5 /HPF (0-5)
[2022-03-16 14:09] LABS: Calcium Oxalate Crystals Urine Present; Hyaline Casts Urine 0-2 /LPF (0-2); Squamous Epithelial Cell Urine 0-2 /HPF (0-2)
[2022-03-16 14:10] LABS: Bacteria Urine Trace (None Seen)
[2022-03-16 14:15] LABS: Creatinine Urine 205.32 mg/dL
--- NOTE | 2022-03-16 14:21 | P.BOP_ITS ---
Brief Operative Note Date of Service: 03/16/22 Pre-op diagnosis: gi bleed Post-op diagnosis: same Procedure: egd Surgeon: Og Layne Anesthesia: MAC Was an Materials Planner/Production Planner used for this Procedure?: No Estimated blood loss (mL): 0 Pathology: none sent Condition: stable Disposition: PACU
--- NOTE | 2022-03-16 14:21 | PM.EVENT ---
Event Note Date of Service: 03/16/22 Event Note: EGD note dictated erosive esophagitis, diffuse gastritis and focal duodenitis no active bleeding rec advance diet continue ppi follow hct
--- NOTE | 2022-03-16 14:44 | MHC.CLN ---
PT IS SEVERELY MALNOURISHED PT IS SEVERELY DEPLETED SUBCUTANEOUS FAT AND MUSCLE MASS WITH CHRONIC POOR PO INTAKE AND INCREASED NUTRITION NEEDS R/T CHEMOTHERAPY. 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 PT REFUSES TO DRINK NUTRITION SUPPLEMENTS FOR INCREASED KCALS PT IS CURRENTLY NPO FOR PROCEDURE IF DIET TO ADVANCE, RECOMMEND LIBERALIZED DIET TO OFFER INCREASE IN VARIETY MONITOR PO INTAKE CLOSELY SEE FULL CLINICAL NUTRITION ASSESSMENT
[2022-03-16] MEDS: Phytonadione (Vit K1) 10 MG in 0.9 % Sodium Chloride 50 ML 51 MG IV (14:49)
[2022-03-16] MEDS: SODIUM CHLORIDE 0.9% IV (15:29)
[2022-03-16] MEDS: RASBURICASE IV (15:29)
--- NOTE | 2022-03-16 15:55 | P.PNIM_ITS ---
Subjective Subjective Date of Service: 03/16/22 Interval History: dark vomitus,anemia/thrombocytopenia/leukocytosis? possible tumer lysis syndrome. Review of Systems no new c/o of vomiting or diarrahae or abd pain Denies any shortness of breath or cough Or any urinary complaints. Physical Exam Vital Signs: Vital Signs: Last Vital Signs Temp 99.0 F 03/16/22 15:22 Pulse 91 03/16/22 15: Resp 19 03/16/22 15: BP 141/66 H 03/16/22 15:22 Pulse Ox 92 03/16/22 15:22 O2 Del Method 03/16/22 15: O2 Flow Rate 4 03/16/22 14:32 BMI result Body Mass Index 20.7 Appearance: Alert.? Oriented X3.?chronic ill patient cvs: rrr, [id number]. res: air entry seems fair , no rales or wheezing abd: no rebound or guarding ,nt, bs present. ext pulses present , no cyanosis . neuro: axo3 , nonfocal. Objective Data Active Medications Acetaminophen (Acetaminophen 325 Mg Tablet) 650 mg PO Q6H PRN PRN Reason: Pain, Mild (Pain Scale 1-3) Allopurinol (Allopurinol 100 Mg Tablet) 100 mg PO Q8H ADDIE Diphenhydramine HCl 25 mg/ (Sodium Chloride) 50.5 mls @ 200 mls/hr IV ONCE [facility] Last Infusion: 03/15/22 14:25 Dose: 0 mls/hr Documented By: DYLON Ampicillin Sodium/Sulbactam (Sodium 3 gm/ Sodium Chloride) 100 mls @ 200 mls/hr IV Q12H [facility] Last Infusion: 03/16/22 10:00 Dose: 0 mls/hr Documented By: KARUNA-FREYA Sodium Bicarbonate 150 meq/ (Dextrose) 1,000 mls @ 100 mls/hr IV .Q10H [facility] Last Admin: 03/16/22 11:59 Dose: 100 mls/hr Documented By: KARUNA-FREYA Ondansetron HCl (Ondansetron Hcl 4 Mg/2 Ml Vial) 4 mg IVPUSH Q8H PRN PRN Reason: Nausea and Vomiting Pantoprazole Sodium (Pantoprazole Sodium 40 Mg/10 Ml Vial) 40 mg IVPUSH BID@ 0630,1630 [facility] Last Admin: 03/16/22 05:00 Dose: 40 mg Documented By: JAYNE Pharmacy Consult (Consult Rx Perform Med Rec) 1 each MISCELLANE ONCE PRN PRN Reason: Consult order Sodium Chloride (0.9 % Sodium Chloride Flush 3 Ml Syringe) 3 ml IVFLUSH QSHIFT [facility] Last Admin: 03/16/22 09:32 Dose: Not Given Documented By: SUNIL Non-Admin Reason: See Note Tamsulosin HCl (Tamsulosin Hcl 0.4 Mg Capsule) 0.4 mg PO DAILY [facility] Labs CBC & Chem 7: 03/16/22 06:48 03/16/22 06:48 Labs: Laboratory Results - last 24 hr 03/15/22 03/16/22 03/16/22 09:25 06:48 06:48 MCV 90.8 MCH 30.7 MCHC 33.8 RDW 15.7 Plt Count 20 L* MPV Not Reportable Immature Gran % (Auto) Cancelled Neut % (Auto) Cancelled Lymph % (Auto) Cancelled [place] % (Auto) Cancelled Eos % (Auto) Cancelled Baso % (Auto) Cancelled Lymph # (Auto) Cancelled [place] # (Auto) Cancelled Eos # (Auto) Cancelled Baso # (Auto) Cancelled Abs Immat Gran (auto) Cancelled Absolute Neuts (auto) Cancelled Absolute Nucleated RBC 0.220 H Nucleated RBC % (auto) 0.5 H Neutrophils % (Manual) 53 Band Neutrophils % 1 L Lymphocytes % (Manual) 11 L Atypical Lymphs % (Man) 11 H Monocytes % (Manual) 5 Basophils % (Manual) 1 Metamyelocytes % 2 Blast Cells % (Manual) 16 Abs Neuts (Manual) 23.6 H Lymphocytes # (Manual) 4.8 Atyp Lymphs # (Manual) 4.8 Monocytes # (Manual) 2.2 H Basophils # (Manual) 0.4 H Metamyelocytes # 0.9 Blast Cells # 7.0 Nucleated RBCs 6 H Platelet Estimate DECREASED Large Platelets PRESENT Plt Morphology Comment NORMAL RBC Morphology NOTED Polychromasia 1+ (0-2) Hypochromasia 1+ (5-14) Ovalocytes 1+ (5-14) Miranda Cells 1+ (0-2) Acanthocytes (Spur) 1+ (0-2) Schistocytes 1+ (0-2) Absolute Retic Percent Retic Immature Retic Fraction Retic Hgb Equivalent PT INR APTT Fibrinogen Anion Gap 23 H Estim Creat Clear Calc 23.0 Estimated GFR 25 Random Glucose 85 Uric Acid Calcium 8.2 L D Phosphorus Total Bilirubin Direct Bilirubin AST ALT Alkaline Phosphatase Lactate Dehydrogenase Total Creatine Kinase Total Protein Albumin Urine Color Urine Appearance Urine pH Ur Specific [place] Urine Protein Urine Glucose (UA) Urine Ketones Urine Blood Urine Nitrite Ur Leukocyte Esterase Urine RBC Urine WBC Ur Squamous Epith Cells Calcium Oxalate Crystal Urine Bacteria Hyaline Casts Urine Creatinine Blood Type A Positive Antibody Screen NEGATIVE Antibody Identification Negative MYRA, Polyspecific NEGATIVE Positive MYRA Work-up TNP Crossmatch See Detail Crossmatch ([facility]) See Detail Enhanced Crossmatch See Detail 03/16/22 03/16/22 03/16/22 06:48 06:48 06:48 MCV MCH MCHC RDW Plt Count MPV Immature Gran % (Auto) Neut % (Auto) Lymph % (Auto) [place] % (Auto) Eos % (Auto) Baso % (Auto) Lymph # (Auto) [place]ucks # (Auto) Eos # (Auto) Baso # (Auto) Abs Immat Gran (auto) Absolute Neuts (auto) Absolute Nucleated RBC Nucleated RBC % (auto) Neutrophils % (Manual) Band Neutrophils % Lymphocytes % (Manual) Atypical Lymphs % (Man) Monocytes % (Manual) Basophils % (Manual) Metamyelocytes % Blast Cells % (Manual) Abs Neuts (Manual) Lymphocytes # (Manual) Atyp Lymphs # (Manual) Monocytes # (Manual) Basophils # (Manual) Metamyelocytes # Blast Cells # Nucleated RBCs Platelet Estimate Large Platelets Plt Morphology Comment RBC Morphology Polychromasia Hypochromasia Ovalocytes Alex Cells Acanthocytes (Spur) Schistocytes Absolute Retic 0.022 L Percent Retic 0.7 Immature Retic Fraction 3.6 Retic Hgb Equivalent 39.5 H PT 19.4 H INR 1.7 H APTT 27.7 Cancelled Fibrinogen 518 Cancelled Anion Gap Estim Creat Clear Calc Estimated GFR Random Glucose Uric Acid Calcium Phosphorus Total Bilirubin Direct Bilirubin AST ALT Alkaline Phosphatase Lactate Dehydrogenase Total Creatine Kinase Total Protein Albumin Urine Color Urine Appearance Urine pH Ur Specific [place] Urine Protein Urine Glucose (UA) Urine Ketones Urine Blood Urine Nitrite Ur Leukocyte Esterase Urine RBC Urine WBC Ur Squamous Epith Cells Calcium Oxalate Crystal Urine Bacteria Hyaline Casts Urine Creatinine Blood Type Antibody Screen Antibody Identification MYRA, Polyspecific Positive MYRA Work-up Crossmatch Crossmatch ([facility]) Enhanced Crossmatch 03/16/22 03/16/22 03/16/22 06:48 13:20 13:20 MCV MCH MCHC RDW Plt Count MPV Immature Gran % (Auto) Neut % (Auto) Lymph % (Auto) Bucks % (Auto) Eos % (Auto) Baso % (Auto) Lymph # (Auto) [place] # (Auto) Eos # (Auto) Baso # (Auto) Abs Immat Gran (auto) Absolute Neuts (auto) Absolute Nucleated RBC Nucleated RBC % (auto) Neutrophils % (Manual) Band Neutrophils % Lymphocytes % (Manual) Atypical Lymphs % (Man) Monocytes % (Manual) Basophils % (Manual) Metamyelocytes % Blast Cells % (Manual) Abs Neuts (Manual) Lymphocytes # (Manual) Atyp Lymphs # (Manual) Monocytes # (Manual) Basophils # (Manual) Metamyelocytes # Blast Cells # Nucleated RBCs Platelet Estimate Large Platelets Plt Morphology Comment RBC Morphology Polychromasia Hypochromasia Ovalocytes Alex Cells Acanthocytes (Spur) Schistocytes Absolute Retic Percent Retic Immature Retic Fraction Retic Hgb Equivalent PT INR APTT Fibrinogen Anion Gap Estim Creat Clear Calc Estimated GFR Random Glucose Uric Acid 21.0 H Calcium Phosphorus 4.5 Total Bilirubin 1.8 H Direct Bilirubin 1.3 H AST 69 H ALT 43 H Alkaline Phosphatase 119 H D Lactate Dehydrogenase 4771 H Total Creatine Kinase 76 Total Protein 5.7 L Albumin 2.8 L Urine Color Yellow Urine Appearance Clear Urine pH 5.0 Ur Specific [place] 1.025 Urine Protein Negative Urine Glucose (UA) Negative Urine Ketones Trace Urine Blood Trace Urine Nitrite Negative Ur Leukocyte Esterase Negative Urine RBC 3-5 H Urine WBC 0-5 Ur Squamous Epith Cells 0-2 Calcium Oxalate Crystal Present Urine Bacteria Trace Hyaline Casts 0-2 Urine Creatinine 205.32 Blood Type Antibody Screen Antibody Identification MYRA, Polyspecific Positive MYRA Work-up Crossmatch Crossmatch ([facility]) Enhanced Crossmatch Assessment and Plan (1) Acute GI bleeding: Status: Acute (2) MDS (myelodysplastic syndrome), high grade: Status: Acute Plan 71 yo M with multiple medical issues including active treatment for MDS who presents with a 1 day history of dark vomitus and a several day history of melatonic stools. His presentation is consistent with upper gi bleed. He will be admitted for further treatment. 1. Acute GI bleed / acute blood loss anemia 2 units prbcs + 2 unit platelets ordered by ED IV PPI GI consult-s/p egd:erosive esophagitis, diffuse gastritis and focal duodenitis,no active bleeding advance diet ,ppi,moniter h/h. h/h stable around 9.4 platelets 20 which seems to be better than last week. GI following. 2. Thrombocytopenia / leukocytosis with 16% blasts-possible AML as per hemtology notes likey due to underlying MDS ED provider discussed the case with patient's oncologist at [facility]. Per ED provider, the patient does not need transfer to the [facility]. 3. LYNN with metabolic acidosis-possible tumer lysis likely secondary to volume depletion being given blood -- will hold off on IV hydration repeat with AM 6 hour after dose of resburicase ,bicarb drip. cbc ,cmp,uric acid ,ldh 6 hour after ist dose rasburicase G6pd added PVR and bladder scan, straight cath if urine nephro folowing 4. Prior alcohol use reports last drink >3 weeks ago monitor for withdrawal hold his PO meds today -- restart after GI eval possible moderate malnutrition: nutritional following Full Code DVT pptx, mechanical due to Gi bleed. Ongoing inpatient need- tumor lysis syndrome, LYNN- needs bicarb drip, rasburicase and electrolytes as well as CBC monitoring Quality Stroke Does the patient have a stroke diagnosis?: No VTE Prior VTE?: No VTE Risk Level:: Medical - moderate - high VTE Device Contraindication: N/A - Device Ordered VTE Drug Contraindication: Treatment Not Tolerated
[2022-03-16] MEDS: allopurinoL 100 MG TABLET PO ×2 (15:57→21:06)
[2022-03-16] MEDS: Tamsulosin HCL 0.4 MG CAPSULE PO (15:57)
[2022-03-16] MEDS: Acetaminophen 325 MG TABLET 650 MG PO (16:00)
--- NOTE | 2022-03-16 16:21 | PC.NURSE ---
1u PLT given as ordered. fluids changed and maintianed. report given to staff in procedure unit. informed of pt;s retention and inability to void and bladder scan being 615. per md place mary. mary was unable to be placed d/t resistance, informed. pt was then able to void 435cc tea colored urine. informed of pt's weakness with standing, ?'ed PT order. informed of pt's temp 100, per md administer prn tylenol. blood cultures obtained. 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 pt requested sleep meds, informed. pt's at bedside assisting with care.
[2022-03-16 21:53] LABS: PLT CLUMP 1
[2022-03-16 21:55] LABS: Hematocrit 24.5 % (42.0-52.0); Hemoglobin 8.3 g/dl (14.0-18.0); Mean Corpuscular HGB Conc 33.9 g/dl (31.0-36.0); Mean Corpuscular Hemoglobin 30.6 pg (27.0-33.0); Mean Corpuscular Volume 90.4 fL (80.0-98.0); NRBC Pct Auto 0.6 /100WBC (0.0-0.2); Red Blood Count 2.71 X10*6/uL (4.60-5.80); Red Cell Distribution Width 16.1 % (11.0-16.0)
[2022-03-16 22:13] LABS: Alanine Aminotransferase 38 U/L (0-40); Albumin Level 2.4 g/dL (3.5-5.0); Alkaline Phosphatase 103 U/L (39-117); Anion Gap 21 (12-20); Aspartate Amino Transferase 60 U/L (5-37); Bilirubin Total 2.6 mg/dL (0.0-1.0); Blood Urea Nitrogen 80 mg/dL (9-16); Calcium 7.7 mg/dL (8.4-10.2); Carbon Dioxide 21 mmol/L (22-29); Chloride 106 mmol/L (96-108); Creatinine Clr Calc Pharmacy 25.6; Estimated Glomerular Filt Rate 28; Glucose Random 129 mg/dL (60-115); Lactate Dehydrogenase 3957 U/L (118-273); Potassium 3.9 mmol/L (3.3-5.1); Sodium 144 mmol/L (135-145); Total Protein 4.9 g/dL (6.5-8.0)
[2022-03-16 22:14] LABS: Anion Gap 21 (12-20); Blood Urea Nitrogen 80 mg/dL (9-16); Carbon Dioxide 21 mmol/L (22-29); Chloride 106 mmol/L (96-108); Estimated Glomerular Filt Rate 29; Potassium 3.9 mmol/L (3.3-5.1); Sodium 144 mmol/L (135-145); Uric Acid 17.9 mg/dL (3.4-7.0)
[2022-03-16 22:32] LABS: Uric Acid for Rasburicase 18.5 mg/dL
[2022-03-16 23:01] LABS: PLT ABN DIST 1
[2022-03-16 23:02] LABS: Platelet Count 25 X10*3/uL (160-400); White Blood Count 44.7 X10*3/uL (4.8-10.8)
--- NOTE | 2022-03-16 23:17 | OP_ITS ---
SURGEON: Og Layne MD INDICATIONS: Upper GI bleeding. PREOPERATIVE DIAGNOSIS: POSTOPERATIVE DIAGNOSIS: PROCEDURE PERFORMED: Upper endoscopy on 03/16/22. ESTIMATED BLOOD LOSS: COMPLICATIONS: ANESTHESIA: Monitored anesthesia care. History and physical was performed. The risks and benefits of the procedure were explained to the patient. Informed consent was obtained. ASSISTANTS: SPECIMENS: PROCEDURE IN DETAIL: The patient was placed in a left lateral decubitus position. The Olympus video gastroscope was introduced into the esophagus, stomach, and duodenum. Examination was performed then the scope was removed. He tolerated the procedure well and was taken to recovery in stable condition. FINDINGS: Esophagus: There was a small implanted button at the upper esophageal area related to his tracheostomy that allowed for esophageal speech. The distal esophagus showed multiple linear erosions, but no active bleeding. There was some retained food or clotted material in the upper esophagus that was gently pushed into the stomach. There was no active bleeding. No varices were seen. Stomach: The stomach showed diffuse gastritis with erythema, but no active bleeding. No ulcer was identified. Duodenum: There were focal areas of erosions in the duodenal bulb consistent with duodenitis. The 2nd portion was clear. No biopsies were obtained due to the patient's thrombocytopenia and coagulopathy. IMPRESSION: 1. Erosive esophagitis. 2. Gastritis. 3. Focal duodenitis. RECOMMENDATIONS: 1. Continue proton pump inhibitor. 2. Blood products as needed. 3. Follow H and H. 4. Advance diet. MD IRMA Easton/DEYAL / [id number]
[2022-03-16] MEDS: 0.9 % Sodium Chloride Flush 3 ML SYRINGE IVFLUSH (23:54)
[2022-03-17] VITALS (14 sets, daily range): BP systolic 79–171; BP diastolic 50–81; PULSE 92–129; RESP 17–32; TEMP 36.2–37.6; O2SAT 91–99
[2022-03-17] MEDS: Sodium Bicarbonate 8.4% 150 MEQ in Dextrose 5 % 850 ML 100 MEQ IV ×3 (02:07→14:08)
[2022-03-17] MEDS: allopurinoL 100 MG TABLET PO ×2 (03:25→11:03)
--- NOTE | 2022-03-17 03:48 | PC.NURSE ---
Critical labs was reported for WBCs 44.7; +blood cultures for Gram + cocci and cluster. Jc Goodrich notified
[2022-03-17] MEDS: vancomycin HCL 1,500 MG in 0.9 % Sodium Chloride 500 ML 333.33 MG IV (04:41)
[2022-03-17] MEDS: Pantoprazole Sodium 40 MG/10 ML VIAL IVPUSH ×2 (05:47→16:03)
[2022-03-17] MEDS: Tamsulosin HCL 0.4 MG CAPSULE PO (08:10)
--- NOTE | 2022-03-17 09:13 | PHA.PROG ---
Admission Date/Time: March 15, 2022 14:36 Indication: BACTEREMIA Weight in k.971 kg Adjusted body weight in K.648 [place] body weight in Kg: Obesity Dosing Indication % IBW: Serum Creatinine - Last 168 Hours 03/15/22 03/16/22 03/16/22 09:27 06:48 21:30 Creatinine 2.34 H 2.57 H 2.31 H 03/16/22 21:30 Creatinine 2.27 H Estimated CrCl and GFR - Last 168 Hours 03/15/22 03/16/22 03/16/22 09:27 06:48 21:30 Estim Creat Clear Calc 25.2 23.0 25.6 Estimated GFR 28 25 28 03/16/22 21:30 Estim Creat Clear Calc 26.0 Estimated GFR 29 Vancomycin Loading Dose: 1500 MG Current Vancomycin Dosing Regimen: 750MG Q24H Vancomycin Monitoring using AUC goal of 400 - 600 range with trough as surrogate marker: AUC 550; TROUGH 18.6 Date and Time for next Vancomycin Level to be drawn: 03/19@0500 Pharmacist Comments on Vancomycin Plan: Vancomycin dosing will take advantage of [employer] as a clinical decision support tool that uses Bayesian modeling to calculate individual patient's pharmacokinetic parameters and forecast the patient's drug concentration time course with the target goal AUC 24 range of 400 - 600 mg/L/hr.
[2022-03-17 10:02] LABS: Hematocrit 26.3 % (42.0-52.0); Hemoglobin 8.9 g/dl (14.0-18.0); Mean Corpuscular HGB Conc 33.8 g/dl (31.0-36.0); Mean Corpuscular Hemoglobin 30.8 pg (27.0-33.0); NRBC Pct Auto 0.6 /100WBC (0.0-0.2); PLT CLUMP 1; Red Blood Count 2.89 X10*6/uL (4.60-5.80); Red Cell Distribution Width 16.6 % (11.0-16.0)
[2022-03-17 10:17] LABS: White Blood Count 58.7 X10*3/uL (4.8-10.8)
[2022-03-17 10:23] LABS: Platelet Count 28 X10*3/uL (160-400)
[2022-03-17 10:31] LABS: Anion Gap 25 (12-20); Blood Urea Nitrogen 84 mg/dL (9-16); Carbon Dioxide 20 mmol/L (22-29); Chloride 101 mmol/L (96-108); Creatinine Clr Calc Pharmacy 26.6; Estimated Glomerular Filt Rate 30; Potassium 3.8 mmol/L (3.3-5.1); Sodium 142 mmol/L (135-145); Uric Acid 14.2 mg/dL (3.4-7.0)
[2022-03-17 10:32] LABS: Alanine Aminotransferase 48 U/L (0-40); Albumin Level 2.5 g/dL (3.5-5.0); Alkaline Phosphatase 136 U/L (39-117); Anion Gap 26 (12-20); Aspartate Amino Transferase 88 U/L (5-37); Blood Urea Nitrogen 84 mg/dL (9-16); Calcium 7.6 mg/dL (8.4-10.2); Carbon Dioxide 21 mmol/L (22-29); Chloride 101 mmol/L (96-108); Creatinine Clr Calc Pharmacy 26.6; Estimated Glomerular Filt Rate 30; Glucose Random 116 mg/dL (60-115); Potassium 3.8 mmol/L (3.3-5.1); Sodium 144 mmol/L (135-145)
[2022-03-17] MEDS: Ampicillin Sodium/Sulbactam Na 3 GM in 0.9 % Sodium Chloride 100 ML IV (11:03)
--- NOTE | 2022-03-17 11:19 | P.PNNP_ITS ---
Subjective Subjective Date of Service: 03/17/22 Interval history: seen and examined, events noted Physical Exam Vital Signs: Vital Signs: Last Vital Signs Temp 97.2 F 03/17/22 07:42 Pulse 118 H 03/17/22 07:42 Resp 18 03/17/22 07:42 BP 97/59 L 03/17/22 07:42 Pulse Ox 91 L 03/17/22 07:42 O2 Del Method 03/17/22 07:42 O2 Flow Rate 2 03/17/22 07:42 BMI result Body Mass Index 20.7 Const: Other: Constitutional - Awake and Alert, No apparent distress, chronically ill appearing Eyes - PERRLA, EOMI Cardiovascular - S1S2, RRR, No edema Respiratory - Normal lung expansion, Normal respiratory effort, No respiratory distress, CTA bilaterally Gastrointestinal - NT / ND; +BS; No rebound or guarding - No CVA tenderness Extremities - no calf tenderness bilaterally, no swelling Musculoskeletal - Normal inspection, normal ROM Skin - Warm/Dry Neurological - Alert & oriented x3, No focal deficit Psychological - Appropriate affect General: cooperative, healthy appearing, comfortable and no acute distress Orientation/consciousness: patient oriented x3 Limitations: No language barrier (laryngectomy - nonverbal a&o) HEENT: Face and sinus: Yes normal facial exam Mouth: moist mucous membranes Neck: Neck: Yes normal visual inspection, Yes full ROM and Yes trachea midline Chest: Chest palpation & inspection: normal inspection of the chest Resp: Effort & Inspection: normal respiratory effort, able to speak in complete sentences and no respiratory distress GI: Inspection: Yes normal to inspection Back/Spine/Pelvis: Cervical Spine: normal cervical lordosis Thoracic/Lumbar Spine: thoracic and lumbar spine normal to inspection Skin: General skin exam: no rashes or lesions noted Neuro: General: patient oriented x3, tone normal and moves all extremities Extrem: General: Yes normal to inspection and Yes capillary refill normal Objective Data Labs CBC & Chem 7: 03/17/22 09:29 03/17/22 09:29 Labs: Laboratory Results - last 24 hr 03/15/22 03/16/22 03/16/22 09:25 06:48 12:30 WBC RBC Hgb Hct MCV MCH MCHC RDW Plt Count MPV Absolute Nucleated RBC Nucleated RBC % (auto) Schistocytes 1+ (0-2) Sodium Potassium Chloride Carbon Dioxide Anion Gap BUN Creatinine Estim Creat Clear Calc Estimated GFR Random Glucose Uric Acid Calcium Total Bilirubin AST ALT Alkaline Phosphatase Lactate Dehydrogenase Total Protein Albumin Urine Color Urine Appearance Urine pH Ur Specific [place] Urine Protein Urine Glucose (UA) Urine Ketones Urine Blood Urine Nitrite Ur Leukocyte Esterase Urine RBC Urine WBC Ur Squamous Epith Cells Calcium Oxalate Crystal Urine Bacteria Hyaline Casts Urine Creatinine Uric Pt Rasburicase Ref Lab Test Result SEE NOTE Crossmatch See Detail [facility] See Detail 03/16/22 03/16/22 03/16/22 13:20 13:20 21:30 WBC RBC Hgb Hct MCV MCH MCHC RDW Plt Count MPV Absolute Nucleated RBC Nucleated RBC % (auto) Schistocytes Sodium Potassium Chloride Carbon Dioxide Anion Gap BUN Creatinine Estim Creat Clear Calc Estimated GFR Random Glucose Uric Acid Calcium Total Bilirubin AST ALT Alkaline Phosphatase Lactate Dehydrogenase Total Protein Albumin Urine Color Yellow Urine Appearance Clear Urine pH 5.0 Ur Specific [place] 1.025 Urine Protein Negative Urine Glucose (UA) Negative Urine Ketones Trace Urine Blood Trace Urine Nitrite Negative Ur Leukocyte Esterase Negative Urine RBC 3-5 H Urine WBC 0-5 Ur Squamous Epith Cells 0-2 Calcium Oxalate Crystal Present Urine Bacteria Trace Hyaline Casts 0-2 Urine Creatinine 205.32 Uric Pt Rasburicase 18.5 Ref Lab Test Result Crossmatch Crossmatch ([facility]) 03/16/22 03/16/22 03/16/22 21:30 21:30 21:30 WBC 44.7 H* RBC 2.71 L Hgb 8.3 L Hct 24.5 L MCV 90.4 MCH 30.6 MCHC 33.9 RDW 16.1 H Plt Count 25 L MPV Not Reportable Absolute Nucleated RBC 0.280 H Nucleated RBC % (auto) 0.6 H Schistocytes Sodium 144 144 Potassium 3.9 3.9 Chloride 106 106 Carbon Dioxide 21 L 21 L Anion Gap 21 H 21 H BUN 80 H 80 H Creatinine 2.31 H 2.27 H Estim Creat Clear Calc 25.6 26.0 Estimated GFR 28 29 Random Glucose 129 H Uric Acid 17.9 H Calcium 7.7 L D Total Bilirubin 2.6 H AST 60 H ALT 38 Alkaline Phosphatase 103 Lactate Dehydrogenase 3957 H Total Protein 4.9 L Albumin 2.4 L Urine Color Urine Appearance Urine pH Ur Specific [place] Urine Protein Urine Glucose (UA) Urine Ketones Urine Blood Urine Nitrite Ur Leukocyte Esterase Urine RBC Urine WBC Ur Squamous Epith Cells Calcium Oxalate Crystal Urine Bacteria Hyaline Casts Urine Creatinine Uric Pt Rasburicase Ref Lab Test Result Crossmatch Crossmatch ([facility]) 03/17/22 03/17/22 03/17/22 09:29 09:29 09:29 WBC 58.7 H* RBC 2.89 L Hgb 8.9 L Hct 26.3 L MCV 91.0 MCH 30.8 MCHC 33.8 RDW 16.6 H Plt Count 28 L MPV Not Reportable Absolute Nucleated RBC 0.370 H Nucleated RBC % (auto) 0.6 H Schistocytes Sodium 144 142 Potassium 3.8 3.8 Chloride 101 101 Carbon Dioxide 21 L 20 L Anion Gap 26 H 25 H BUN 84 H 84 H Creatinine 2.22 H 2.22 H Estim Creat Clear Calc 26.6 26.6 Estimated GFR 30 30 Random Glucose 116 H D Uric Acid 14.2 H Calcium 7.6 L Total Bilirubin 3.0 H AST 88 H ALT 48 H Alkaline Phosphatase 136 H Lactate Dehydrogenase Total Protein 5.0 L Albumin 2.5 L Urine Color Urine Appearance Urine pH Ur Specific [place] Urine Protein Urine Glucose (UA) Urine Ketones Urine Blood Urine Nitrite Ur Leukocyte Esterase Urine RBC Urine WBC Ur Squamous Epith Cells Calcium Oxalate Crystal Urine Bacteria Hyaline Casts Urine Creatinine Uric Pt Rasburicase Ref Lab Test Result Crossmatch Crossmatch ([facility]) Microbiology Microbiology Results: Microbiology 03/16/22 09:04 Blood - Venous Blood Culture - Preliminary Prelim: GPC Gram Stain only Procedures Date of Service Date of Service: 03/17/22 Assessment & Plan Assessment and plan (1) Acute GI bleeding: Status: Acute (2) MDS (myelodysplastic syndrome), high grade: Status: Acute Plan Non-Oliguric LYNN: mostc/w TLS tubular innjury; SCr stable with good UOP and decr UAL are all good sign and eventually decr SCr TLS spontaneous given no recent chemo; repsonding to IVF and rasburicase MDS w balsts REC: cont IV NaHCO3, rasburicas and allupurinol; avoid NSAIDs, no indication for [employer] Will follow with team Time Spent With Patient Time: Total time spent is greater than 50% in coordination of care (as documented) at patient's floor/unit and/or counseling patient: Progress Note: Quality Stroke Does the patient have a stroke diagnosis?: No
[2022-03-17 11:31] LABS: Uric Acid for Rasburicase 14.2 mg/dL
[2022-03-17 11:32] LABS: Lactate Dehydrogenase 2760 U/L (118-273)
[2022-03-17 12:16] LABS: Venous Blood Gas Refer to POC result
[2022-03-17 12:19] LABS: VBG Base Excess -4.9 mmol/L; VBG HCO3 17 mmol/L (22-26); VBG pCO2 23 mmHg; VBG pH 7.47 (7.32-7.43); VBG pO2 51 mmHg
[2022-03-17 12:34] LABS: Appearance Urine Cloudy; Color Urine Dark Yellow; Glucose Urine UA Negative (Negative); Leukocyte Esterase Urine Trace (Negative); Nitrite Urine Negative (Negative); Specific Gravity - Urine 1.025 (1.005-1.025); UMIC TRIGGER UA YES; Urine Blood Large (3+) (Negative); Urine Ketones Negative (Negative); Urine Protein Trace mg/dL (Neg-Trace)
[2022-03-17] MEDS: 0.9 % Sodium Chloride 1,000 ML 999 ML IVCONT ×4 (12:39→17:19)
[2022-03-17 12:44] LABS: B Type Natriuretic Peptide 40 pg/mL (<100)
[2022-03-17 12:47] LABS: Lactic Acid 11.7 mmol/L (0.5-2.0)
[2022-03-17 12:50] LABS: Bacteria Urine None Seen (None Seen); Granular Casts Urine Present; WBC Urine 0-5 /HPF (0-5)
--- NOTE | 2022-03-17 12:59 | PC.NURSE ---
Addendum entered by Neri Dumont RN 03/17/22 13:00: cont O2 monitor in place. bolus administered. labs obtained, urine obtained. Original Note: pt was found to be hypotensive, tachypneic, desatting to 80s and altered compated to baseline assessment. MD informed of all findings and abnormal labs.
[2022-03-17] MEDS: Rasburicase 6 MG in 0.9 % Sodium Chloride 46 ML 100 MG IV (13:07)
--- NOTE | 2022-03-17 13:13 | MHC.CLN ---
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 PT REFUSES TO DRINK NUTRITION SUPPLEMENTS FOR INCREASED KCALS MONITOR PO INTAKE CLOSELY
[2022-03-17] MEDS: Acetaminophen 325 MG TABLET 650 MG PO (13:57)
[2022-03-17] MEDS: Phenazopyridine HCL 100 MG TABLET PO (13:58)
[2022-03-17] MEDS: Piperacillin Sodium/Tazobactam 2.25 GM in 0.9 % Sodium Chloride 50 ML IV ×2 (14:01→22:34)
[2022-03-17 14:12] LABS: Reflex Lactate? Lactic Acid Added
[2022-03-17] MEDS: Albumin Human 25 % 100 ML IV ×2 (14:55→16:02)
--- NOTE | 2022-03-17 15:20 | PM.GIPN ---
Subjective Subjective Date of Service: 03/17/22 Interval History: confused per staff and family Critical Care Time (minutes): 0 Physical Exam Vital Signs: Vital Signs: Last Vital Signs Temp 99.7 F 03/17/22 11:41 Pulse 129 H 03/17/22 12:29 Resp 24 H 03/17/22 12:29 BP 96/59 L 03/17/22 12:54 Pulse Ox 99 03/17/22 12:29 O2 Del Method 03/17/22 11:41 O2 Flow Rate 2 03/17/22 07:42 BMI result Body Mass Index 20.7 GI: Other: abdomen is soft and nontender Objective Data Labs CBC & Chem 7: 03/17/22 09:29 03/17/22 09:29 Labs: Laboratory Results - last 24 hr 03/16/22 03/16/22 03/16/22 12:30 21:30 21:30 WBC 44.7 H* RBC 2.71 L Hgb 8.3 L Hct 24.5 L MCV 90.4 MCH 30.6 MCHC 33.9 RDW 16.1 H Plt Count 25 L MPV Not Reportable Absolute Nucleated RBC 0.280 H Nucleated RBC % (auto) 0.6 H VBG pH VBG pCO2 VBG pO2 VBG HCO3 VBG O2 Saturation VBG Base Excess Sodium Potassium Chloride Carbon Dioxide Anion Gap BUN Creatinine Estim Creat Clear Calc Estimated GFR Random Glucose Lactic Acid Uric Acid Calcium Total Bilirubin AST ALT Alkaline Phosphatase Lactate Dehydrogenase B-Natriuretic Peptide Total Protein Albumin Urine Color Urine Appearance Urine pH Ur Specific [place] Urine Protein Urine Glucose (UA) Urine Ketones Urine Blood Urine Nitrite Ur Leukocyte Esterase Urine RBC Urine WBC Ur Squamous Epith Cells Urine Bacteria Hyaline Casts Granular Casts Uric Pt Rasburicase 18.5 Ref Lab Test Result SEE NOTE 03/16/22 03/16/22 03/17/22 21:30 21:30 09:29 WBC 58.7 H* RBC 2.89 L Hgb 8.9 L Hct 26.3 L MCV 91.0 MCH 30.8 MCHC 33.8 RDW 16.6 H Plt Count 28 L MPV Not Reportable Absolute Nucleated RBC 0.370 H Nucleated RBC % (auto) 0.6 H VBG pH VBG pCO2 VBG pO2 VBG HCO3 VBG O2 Saturation VBG Base Excess Sodium 144 144 Potassium 3.9 3.9 Chloride 106 106 Carbon Dioxide 21 L 21 L Anion Gap 21 H 21 H BUN 80 H 80 H Creatinine 2.31 H 2.27 H Estim Creat Clear Calc 25.6 26.0 Estimated GFR 28 29 Random Glucose 129 H Lactic Acid Uric Acid 17.9 H Calcium 7.7 L D Total Bilirubin 2.6 H AST 60 H ALT 38 Alkaline Phosphatase 103 Lactate Dehydrogenase 3957 H B-Natriuretic Peptide Total Protein 4.9 L Albumin 2.4 L Urine Color Urine Appearance Urine pH Ur Specific [place] Urine Protein Urine Glucose (UA) Urine Ketones Urine Blood Urine Nitrite Ur Leukocyte Esterase Urine RBC Urine WBC Ur Squamous Epith Cells Urine Bacteria Hyaline Casts Granular Casts Uric Pt Rasburicase Ref Lab Test Result 03/17/22 03/17/22 03/17/22 09:29 09:29 09:29 WBC RBC Hgb Hct MCV MCH MCHC RDW Plt Count MPV Absolute Nucleated RBC Nucleated RBC % (auto) VBG pH VBG pCO2 VBG pO2 VBG HCO3 VBG O2 Saturation VBG Base Excess Sodium 144 142 Potassium 3.8 3.8 Chloride 101 101 Carbon Dioxide 21 L 20 L Anion Gap 26 H 25 H BUN 84 H 84 H Creatinine 2.22 H 2.22 H Estim Creat Clear Calc 26.6 26.6 Estimated GFR 30 30 Random Glucose 116 H D Lactic Acid Uric Acid 14.2 H Calcium 7.6 L Total Bilirubin 3.0 H AST 88 H ALT 48 H Alkaline Phosphatase 136 H Lactate Dehydrogenase 2760 H B-Natriuretic Peptide Total Protein 5.0 L Albumin 2.5 L Urine Color Urine Appearance Urine pH Ur Specific [place] Urine Protein Urine Glucose (UA) Urine Ketones Urine Blood Urine Nitrite Ur Leukocyte Esterase Urine RBC Urine WBC Ur Squamous Epith Cells Urine Bacteria Hyaline Casts Granular Casts Uric Pt Rasburicase 14.2 Ref Lab Test Result 03/17/22 03/17/22 03/17/22 12:05 12:05 12:10 WBC RBC Hgb Hct MCV MCH MCHC RDW Plt Count MPV Absolute Nucleated RBC Nucleated RBC % (auto) VBG pH VBG pCO2 VBG pO2 VBG HCO3 VBG O2 Saturation VBG Base Excess Sodium Potassium Chloride Carbon Dioxide Anion Gap BUN Creatinine Estim Creat Clear Calc Estimated GFR Random Glucose Lactic Acid 11.7 H* Uric Acid Calcium Total Bilirubin AST ALT Alkaline Phosphatase Lactate Dehydrogenase B-Natriuretic Peptide 40 Total Protein Albumin Urine Color Dark Yellow Urine Appearance Cloudy Urine pH 5.0 Ur Specific [place] 1.025 Urine Protein Trace Urine Glucose (UA) Negative Urine Ketones Negative Urine Blood Large (3+) H Urine Nitrite Negative Ur Leukocyte Esterase Trace H Urine RBC 11-20 H Urine WBC 0-5 Ur Squamous Epith Cells 3-5 Urine Bacteria None Seen Hyaline Casts 11-20 Granular Casts Present Uric Pt Rasburicase Ref Lab Test Result 03/17/22 12:14 WBC RBC Hgb Hct MCV MCH MCHC RDW Plt Count MPV Absolute Nucleated RBC Nucleated RBC % (auto) VBG pH 7.47 H VBG pCO2 23 VBG pO2 51 VBG HCO3 17 L VBG O2 Saturation 78.0 VBG Base Excess -4.9 Sodium Potassium Chloride Carbon Dioxide Anion Gap BUN Creatinine Estim Creat Clear Calc Estimated GFR Random Glucose Lactic Acid Uric Acid Calcium Total Bilirubin AST ALT Alkaline Phosphatase Lactate Dehydrogenase B-Natriuretic Peptide Total Protein Albumin Urine Color Urine Appearance Urine pH Ur Specific [place] Urine Protein Urine Glucose (UA) Urine Ketones Urine Blood Urine Nitrite Ur Leukocyte Esterase Urine RBC Urine WBC Ur Squamous Epith Cells Urine Bacteria Hyaline Casts Granular Casts Uric Pt Rasburicase Ref Lab Test Result Microbiology Microbiology Results: Microbiology 03/16/22 09:23 Blood - Venous Blood Culture - Preliminary No growth after 24 hours. 03/16/22 09:04 Blood - Venous Blood Culture - Preliminary Prelim: GPC Gram Stain only Procedures Date of Service Date of Service: 03/17/22 Progress Note: A&P Assessment and plan (1) Acute GI bleeding: Status: Acute Assessment and Plan: gi bleeding appears to have stabilized follow hct discussed with Nito. she is not sure about possible transfer to [facility] advised her to discuss with medical staff. Time Spent With Patient Time: Total time spent is greater than 50% in coordination of care (as documented) at patient's floor/unit and/or counseling patient: Quality Stroke Does the patient have a stroke diagnosis?: No VTE Prior VTE?: No VTE Risk Level:: Medical - moderate - high VTE Device Contraindication: N/A - Device Ordered VTE Drug Contraindication: Treatment Not Tolerated
[2022-03-17 15:29] LABS: ~Lactic Acid-LAB USE ONLY 9.8 mmol/L (0.5-2.0)
[2022-03-17] MEDS: Phytonadione (Vit K1) Oral 10 MG/ML AMPUL PO (15:54)
--- NOTE | 2022-03-17 16:11 | HO.POSTANES ---
Post Anesthesia Evaluation Post Anesthesia Evaluation Vital Signs: Vital Signs Temp Pulse Resp BP Pulse Ox O2 Del Method O2 Flow Rate 03/17/22 16:09 97.6 F 114 H 32 H 99/57 L 03/17/22 15:41 97.5 F 92 17 171/81 H 96 Nasal Cannula 03/17/22 15:37 97.6 F 109 H 98/62 03/17/22 12:54 96/59 L 03/17/22 12:37 79/54 L 03/17/22 12:29 129 H 24 H 90/51 L 99 03/17/22 11:41 99.7 F 122 H 24 H 90/50 L 95 Room Air 03/17/22 07:42 97.2 F 118 H 18 97/59 L 91 L Room Air 2 Anesthesia: Monitored Mental Status: Awake Pain Control: Satisfactory Nausea/Vomiting: None Hydration: Adequate Anesthesia-Related Issues: No Anes. Related Issues
--- NOTE | 2022-03-17 16:36 | MHC.CM.PN ---
Per 's request, DARLEEN phoned [facility]Bree @ [phone] in an attempt to obtain/inquire about authorization for Patient to transfer to [facility] where Patient has been offered a bed. Bree indicated that Patient can be transferred and once at [facility], [facility] can call the 72 hour Reporting line @ [phone] and that authorization should fall under the umbrella of this hospitalization. When DARLEEN relayed this information back to [facility] @ [phone], DARLEEN was immediately interrupted and told that this was not the case and that an authorization number had to be obtained. DARLEEN the called the provided # [phone] and spoke with Es who indicated that [facility] must attempt to get [facility] to a [facility] such [facility] [place] first, then re-attempt [facility] and if that were to fail then re attempt [facility]. DARLEEN spoke with Es with Dr. Bishop on speaker phone; is aware and RN * CM Administration updated
--- NOTE | 2022-03-17 17:04 | P.CNID_ITS ---
History of Present Illness Data of Consult Service Date: 03/17/22 Requesting physician: Maria R Bishop Primary Care Provider: MD KARLA Strong Reason for consult: leukocytosis He presents with coffee ground emesis before arrival. He has no fever or chills or cough. He has a trach for laryngeal cancer. He has alcohol use disorder. He has acute AML and myeloproliferative disorder. Review of Systems Review of Systems: Yes all other systems are reviewed and are negative PMFSH Past Medical History Medical History Dyslipidemia Hypothyroidism Laryngeal cancer MDS (myelodysplastic syndrome) Peripheral arterial disease Renal cell carcinoma Tracheostomy in place Family History Family history: reviewed and not pertinent Surgical History Surgical History H/O laryngectomy History of nephrectomy S/P arterial stent Social History Social History Household Members: Spouse Caregiver staying overnight: No Housing: House Do you presently have visiting nurse or other home services: Yes Alcohol intake: current Alcohol intake frequency: holidays/special occasions only Patient Tobacco Use Status: Former Tobacco user Quit Date: 7 years ago Advance Directives Date on File: 03/15/22 service: Yes Current occupational status: disabled Meds Allergies Allergy/AdvReac Type Severity Reaction Status Date / Time Iodinated Contrast Media Allergy Hives Verified 03/15/22 10:15 [IV Contrast Dye] Active Medications: Current Medications Acetaminophen (Acetaminophen 325 Mg Tablet) 650 mg PO Q6H PRN PRN Reason: Pain, Mild (Pain Scale 1-3) Last Admin: 03/16/22 16:00 Dose: 650 mg Allopurinol (Allopurinol 100 Mg Tablet) 100 mg PO Q8H ADDIE Last Admin: 03/17/22 11:03 Dose: 100 mg Cyanocobalamin (Cyanocobalamin (Vitamin B-12) 500 Mcg Tablet) 250 mcg PO BID ADDIE Folic Acid (Folic Acid 1 Mg Tablet) 1 mg PO DAILY ADDIE Diphenhydramine HCl 25 mg/ (Sodium Chloride) 50.5 mls @ 200 mls/hr IV ONCE ADDIE Last Infusion: 03/15/22 14:25 Dose: Infused Vancomycin HCl 750 mg/ Sodium (Chloride) 265 mls @ 265 mls/hr IV Q24H [facility] Piperacillin Sod/Tazobactam (Sod 2.25 gm/ Sodium Chloride) 50 mls @ 100 mls/hr IV Q6H [facility] Last Infusion: 03/17/22 14:50 Dose: Infused Sodium Bicarbonate 150 meq/ (Dextrose) 1,000 mls @ 100 mls/hr IV .Q10H [facility] Last Admin: 03/17/22 14:08 Dose: 100 mls/hr Sodium Chloride (Ns) 1,000 mls @ 999 mls/hr IVCONT .Q1H1M [facility] Stop: 03/17/22 17:30 Last Infusion: 03/17/22 16:59 Dose: Infused Levothyroxine Sodium (Levothyroxine Sodium 100 Mcg Tablet) 100 mcg PO DAILY@0600 [facility] Midodrine (Midodrine Hcl 5 Mg Tablet) 5 mg PO TID PRN PRN Reason: Blood Pressure Ondansetron HCl (Ondansetron Hcl 4 Mg/2 Ml Vial) 4 mg IVPUSH Q8H PRN PRN Reason: Nausea and Vomiting Pantoprazole Sodium (Pantoprazole Sodium 40 Mg/10 Ml Vial) 40 mg IVPUSH BID@0630,1630 [facility] Last Admin: 03/17/22 16:03 Dose: 40 mg Pharmacy Consult (Consult Rx Perform Med Rec) 1 each MISCELLANE ONCE PRN PRN Reason: Consult order Pharmacy Consult (Consult Rx Vancomycin Dosing) 1 each MISCELLANE DAILY PRN PRN Reason: Consult order Sodium Chloride (0.9 % Sodium Chloride Flush 3 Ml Syringe) 3 ml IVFLUSH QSHIFT [facility] Last Admin: 03/17/22 16:24 Dose: Not Given Tamsulosin HCl (Tamsulosin Hcl 0.4 Mg Capsule) 0.4 mg PO DAILY [facility] Last Admin: 03/17/22 08:10 Dose: 0.4 mg Tramadol HCl (Tramadol Hcl 50 Mg Tablet) 50 mg PO Q6H PRN PRN Reason: Pain, Moderate (Pain Scale 4-6 Home Medications Medication Instructions Recorded Confirmed Last Taken Type acetaminophen 325 mg tablet 650 mg PO Q4H PRN Pain 03/15/22 03/15/22 Unknown History allopurinol 300 mg tablet 300 mg PO DAILY 03/15/22 03/15/22 Unknown History amlodipine 5 mg tablet 5 mg PO DAILY PRN Blood Pressure 03/15/22 03/15/22 Unknown History amoxicillin 875 mg-potassium 1 tab PO BID 03/15/22 03/15/22 03/15/22 History clavulanate 125 mg tablet atorvastatin 40 mg tablet 40 mg PO DAILY@2100 03/15/22 03/15/22 03/14/22 History cholecalciferol (vitamin D3) 50 50 mcg PO DAILY 03/15/22 03/15/22 03/15/22 History mcg (2,000 unit) tablet cyanocobalamin (vitamin B-12) 250 250 mcg PO BID 03/15/22 03/15/22 03/15/22 History mcg tablet folic acid 1 mg tablet 1 mg PO DAILY 03/15/22 03/15/22 03/15/22 History gabapentin 300 mg capsule 300 mg PO BID@0900,1300 03/15/22 03/15/22 03/15/22 History gabapentin 600 mg tablet 600 mg PO DAILY@209903/15/22 03/15/22 03/14/22 History levothyroxine 100 mcg tablet 100 mcg PO DAILY 03/15/22 03/15/22 03/15/22 History lidocaine-prilocaine 2.5 %-2.5 % 1 appl topical ONCE PRN Painful 03/15/22 03/15/22 Unknown History topical cream Procedure midodrine 5 mg tablet 5 mg PO TID PRN Blood Pressure 03/15/22 03/15/22 Unknown History mirtazapine 7.5 mg tablet 7.5 mg PO BEDTIME 03/15/22 03/15/22 03/14/22 History prochlorperazine maleate 10 mg 10 mg PO Q6H PRN Nausea 03/15/22 03/15/22 Unknown History tablet venetoclax 100 mg tablet 400 mg PO DAILY 03/15/22 03/15/22 Unknown History (Venclexta) Physical Exam Vital Signs: Vital Signs: Last Vital Signs Temp 97.6 F 03/17/22 16:09 Pulse 114 H 03/17/22 16:09 Resp 32 H 03/17/22 16:09 BP 99/57 L 03/17/22 16:09 Pulse Ox 96 03/17/22 15:41 O2 Del Method 03/17/22 15:41 O2 Flow Rate 2 03/17/22 07:42 BMI result Body Mass Index 20.7 Psych: Other: confused Results Labs CBC & Chem 7: 03/17/22 09:29 03/17/22 09:29 Labs: Short CBC 03/16/22 03/17/22 Range/Units 21:30 09:29 WBC 44.7 H* 58.7 H* (4.8-10.8) X10*3/uL Hgb 8.3 L 8.9 L (14.0-18.0) g/dl Hct 24.5 L 26.3 L (42.0-52.0) % Plt Count 25 L 28 L (160-400) X10*3/uL BMP 03/16/22 03/16/22 03/17/22 21:30 21:30 09:29 Sodium 144 144 144 Potassium 3.9 3.9 3.8 Chloride 106 106 101 Carbon Dioxide 21 L 21 L 21 L BUN 80 H 80 H 84 H Creatinine 2.31 H 2.27 H 2.22 H Calcium 7.7 L D 7.6 L 03/17/22 09:29 Sodium 142 Potassium 3.8 Chloride 101 Carbon Dioxide 20 L BUN 84 H Creatinine 2.22 H Calcium Liver Function 03/16/22 03/17/22 Range/Units 21:30 09:29 Total Bilirubin 2.6 H 3.0 H (0.0-1.0) mg/dL AST 60 H 88 H (5-37) U/L ALT 38 48 H (0-40) U/L Alkaline Phosphatase 103 136 H (39-117) U/L Albumin 2.4 L 2.5 L (3.5-5.0) g/dL Urine 03/17/22 Range/Units 12:10 Urine Color Dark Yellow Urine Appearance Cloudy Urine pH 5.0 (5.0-9.0) Ur Specific [place] 1.025 (1.005-1.025) Urine Protein Trace (Neg-Trace) mg/dL Urine Glucose (UA) Negative (Negative) mg/dL Microbiology Microbiology Results: Microbiology 03/16/22 09:23 Blood - Venous Blood Culture - Preliminary No growth after 24 hours. 03/16/22 09:04 Blood - Venous Blood Culture - Preliminary Prelim: GPC Gram Stain only Assessment and Plan (1) Acute GI bleeding: Status: Acute He has leukocytosis and possible associated infection with acute AML He is very immunocompromised (2) MDS (myelodysplastic syndrome), high grade: Status: Acute Plan Would continue Vancomycin and Zosyn Await cultures The patient rather encephalopathic now but intensity of care being determined by patient and family.
[2022-03-17 17:09] LABS: Reflex Lactate? 2 Y
[2022-03-17 17:17] LABS: Creatinine Urine 144.71 mg/dL; Microalbum/Creatinine Ratio Ur 12.4 ug/mg cr
--- NOTE | 2022-03-17 17:25 | PM.EVENT ---
I have reviewed his labs and discussed with his and primary oncologist. He has been started on rasburicase and allopurinol, IV hydration with bicarb for tumor lysis syndrome. He had episode of bacteremia, he is on cefepime and vancomycin. He is waiting to see if he can get transferred to tertiary care center for treatment of AML. For leukocytosis and increasing blasts, we can start hydroxyurea 500 mg once a day. Thank you.
--- NOTE | 2022-03-17 17:57 | HO.PM.IMPN ---
Subjective Subjective Date of Service: 03/17/22 Interval History: follow up dark vomitus,poor oarl intake,anemia/thrombocytopenia/leukocytosis? possible tumer lysis syndrome. Review of Systems patient is mildly tachypneic, also tachycardic feels somewhat weak was desaturating so is on oxygen otherwise denies any chest pain or abdominal pain or nausea or vomiting or diarrhea Physical Exam Vital Signs: Vital Signs: Last Vital Signs Temp 97.6 F 03/17/22 16:09 Pulse 114 H 03/17/22 16:09 Resp 32 H 03/17/22 16:09 BP 99/57 L 03/17/22 16:09 Pulse Ox 96 03/17/22 15:41 O2 Del Method 03/17/22 15:41 O2 Flow Rate 2 03/17/22 07:42 BMI result Body Mass Index 20.7 Appearance: Alert.? Oriented X3.?chronic ill patient cvs: [id number], [id number]. res: air entry seems fair , no rales or wheezing abd: no rebound or guarding ,nt, bs present. ext pulses present , no cyanosis . neuro: axo3 , nonfocal. Objective Data Active Medications Acetaminophen (Acetaminophen 325 Mg Tablet) 650 mg PO Q6H PRN PRN Reason: Pain, Mild (Pain Scale 1-3) Last Admin: 03/16/22 16:00 Dose: 650 mg Documented By: LYNDSEY Allopurinol (Allopurinol 100 Mg Tablet) 100 mg PO Q8H [facility] Last Admin: 03/17/22 11:03 Dose: 100 mg Documented By: LYNDSEY Cyanocobalamin (Cyanocobalamin (Vitamin B-12) 500 Mcg Tablet) 250 mcg PO BID ADIDE Folic Acid (Folic Acid 1 Mg Tablet) 1 mg PO DAILY [facility] Diphenhydramine HCl 25 mg/ (Sodium Chloride) 50.5 mls @ 200 mls/hr IV ONCE [facility] Last Infusion: 03/15/22 14:25 Dose: 0 mls/hr Documented By: DYLON Vancomycin HCl 750 mg/ Sodium (Chloride) 265 mls @ 265 mls/hr IV Q24H [facility] Piperacillin Sod/Tazobactam (Sod 2.25 gm/ Sodium Chloride) 50 mls @ 100 mls/hr IV Q6H [facility] Last Infusion: 03/17/22 14:50 Dose: 0 mls/hr Documented By: KARUNA-SOFOWEN Sodium Bicarbonate 150 meq/ (Dextrose) 1,000 mls @ 100 mls/hr IV .Q10H [facility] Last Admin: 03/17/22 14:08 Dose: 100 mls/hr Documented By: MICHAELA Levothyroxine Sodium (Levothyroxine Sodium 100 Mcg Tablet) 100 mcg PO DAILY@0600 [facility] Midodrine (Midodrine Hcl 5 Mg Tablet) 5 mg PO TID PRN PRN Reason: Blood Pressure Ondansetron HCl (Ondansetron Hcl 4 Mg/2 Ml Vial) 4 mg IVPUSH Q8H PRN PRN Reason: Nausea and Vomiting Pantoprazole Sodium (Pantoprazole Sodium 40 Mg/10 Ml Vial) 40 mg IVPUSH BID@0630,1630 [facility] Last Admin: 03/17/22 16:03 Dose: 40 mg Documented By: LYNDSEY Pharmacy Consult (Consult Rx Perform Med Rec) 1 each MISCELLANE ONCE PRN PRN Reason: Consult order Pharmacy Consult (Consult Rx Vancomycin Dosing) 1 each MISCELLANE DAILY PRN PRN Reason: Consult order Sodium Chloride (0.9 % Sodium Chloride Flush 3 Ml Syringe) 3 ml IVFLUSH QSHIFT [facility] Last Admin: 03/17/22 16:24 Dose: Not Given Documented By: LYNDSEY Non-Admin Reason: IV Running Tamsulosin HCl (Tamsulosin Hcl 0.4 Mg Capsule) 0.4 mg PO DAILY [facility] Last Admin: 03/17/22 08:10 Dose: 0.4 mg Documented By: LYNDSEY Tramadol HCl (Tramadol Hcl 50 Mg Tablet) 50 mg PO Q6H PRN PRN Reason: Pain, Moderate (Pain Scale 4-6 Labs CBC & Chem 7: 03/17/22 09:29 03/17/22 09:29 Labs: Laboratory Results - last 24 hr 03/16/22 03/16/22 03/16/22 12:30 21:30 21:30 MCV 90.4 MCH 30.6 MCHC 33.9 RDW 16.1 H Plt Count 25 L MPV Not Reportable Absolute Nucleated RBC 0.280 H Nucleated RBC % (auto) 0.6 H VBG pH VBG pCO2 VBG pO2 VBG HCO3 VBG O2 Saturation VBG Base Excess Anion Gap Estim Creat Clear Calc Estimated GFR Random Glucose Lactic Acid Lactic Acid F/U @ 2Hr Uric Acid Calcium Total Bilirubin AST ALT Alkaline Phosphatase Lactate Dehydrogenase B-Natriuretic Peptide Total Protein Albumin Urine Color Urine Appearance Urine pH Ur Specific [place] Urine Protein Urine Glucose (UA) Urine Ketones Urine Blood Urine Nitrite Ur Leukocyte Esterase Urine RBC Urine WBC Ur Squamous Epith Cells Urine Bacteria Hyaline Casts Granular Casts Urine Creatinine Urine Microalbumin Microalb/Creat Ratio Uric Pt Rasburicase 18.5 Ref Lab Test Result SEE NOTE 03/16/22 03/16/22 03/17/22 21:30 21:30 09:29 MCV 91.0 MCH 30.8 MCHC 33.8 RDW 16.6 H Plt Count 28 L MPV Not Reportable Absolute Nucleated RBC 0.370 H Nucleated RBC % (auto) 0.6 H VBG pH VBG pCO2 VBG pO2 VBG HCO3 VBG O2 Saturation VBG Base Excess Anion Gap 21 H 21 H Estim Creat Clear Calc 25.6 26.0 Estimated GFR 28 29 Random Glucose 129 H Lactic Acid Lactic Acid F/U @ 2Hr Uric Acid 17.9 H Calcium 7.7 L D Total Bilirubin 2.6 H AST 60 H ALT 38 Alkaline Phosphatase 103 Lactate Dehydrogenase 3957 H B-Natriuretic Peptide Total Protein 4.9 L Albumin 2.4 L Urine Color Urine Appearance Urine pH Ur Specific [place] Urine Protein Urine Glucose (UA) Urine Ketones Urine Blood Urine Nitrite Ur Leukocyte Esterase Urine RBC Urine WBC Ur Squamous Epith Cells Urine Bacteria Hyaline Casts Granular Casts Urine Creatinine Urine Microalbumin Microalb/Creat Ratio Uric Pt Rasburicase Ref Lab Test Result 03/17/22 03/17/22 03/17/22 09:29 09:29 09:29 MCV MCH MCHC RDW Plt Count MPV Absolute Nucleated RBC Nucleated RBC % (auto) VBG pH VBG pCO2 VBG pO2 VBG HCO3 VBG O2 Saturation VBG Base Excess Anion Gap 26 H 25 H Estim Creat Clear Calc 26.6 26.6 Estimated GFR 30 30 Random Glucose 116 H D Lactic Acid Lactic Acid F/U @ 2Hr Uric Acid 14.2 H Calcium 7.6 L Total Bilirubin 3.0 H AST 88 H ALT 48 H Alkaline Phosphatase 136 H Lactate Dehydrogenase 2760 H B-Natriuretic Peptide Total Protein 5.0 L Albumin 2.5 L Urine Color Urine Appearance Urine pH Ur Specific [place] Urine Protein Urine Glucose (UA) Urine Ketones Urine Blood Urine Nitrite Ur Leukocyte Esterase Urine RBC Urine WBC Ur Squamous Epith Cells Urine Bacteria Hyaline Casts Granular Casts Urine Creatinine Urine Microalbumin Microalb/Creat Ratio Uric Pt Rasburicase 14.2 Ref Lab Test Result 03/17/22 03/17/22 03/17/22 12:05 12:05 12:10 MCV MCH MCHC RDW Plt Count MPV Absolute Nucleated RBC Nucleated RBC % (auto) VBG pH VBG pCO2 VBG pO2 VBG HCO3 VBG O2 Saturation VBG Base Excess Anion Gap Estim Creat Clear Calc Estimated GFR Random Glucose Lactic Acid 11.7 H* Lactic Acid F/U @ 2Hr Uric Acid Calcium Total Bilirubin AST ALT Alkaline Phosphatase Lactate Dehydrogenase B-Natriuretic Peptide 40 Total Protein Albumin Urine Color Dark Yellow Urine Appearance Cloudy Urine pH 5.0 Ur Specific [place] 1.025 Urine Protein Trace Urine Glucose (UA) Negative Urine Ketones Negative Urine Blood Large (3+) H Urine Nitrite Negative Ur Leukocyte Esterase Trace H Urine RBC 11-20 H Urine WBC 0-5 Ur Squamous Epith Cells 3-5 Urine Bacteria None Seen Hyaline Casts 11-20 Granular Casts Present Urine Creatinine Urine Microalbumin Microalb/Creat Ratio Uric Pt Rasburicase Ref Lab Test Result 03/17/22 03/17/22 03/17/22 12:10 12:14 15:02 MCV MCH MCHC RDW Plt Count MPV Absolute Nucleated RBC Nucleated RBC % (auto) VBG pH 7.47 H VBG pCO2 23 VBG pO2 51 VBG HCO3 17 L VBG O2 Saturation 78.0 VBG Base Excess -4.9 Anion Gap Estim Creat Clear Calc Estimated GFR Random Glucose Lactic Acid Lactic Acid F/U @ 2Hr 9.8 H* Uric Acid Calcium Total Bilirubin AST ALT Alkaline Phosphatase Lactate Dehydrogenase B-Natriuretic Peptide Total Protein Albumin Urine Color Urine Appearance Urine pH Ur Specific [place] Urine Protein Urine Glucose (UA) Urine Ketones Urine Blood Urine Nitrite Ur Leukocyte Esterase Urine RBC Urine WBC Ur Squamous Epith Cells Urine Bacteria Hyaline Casts Granular Casts Urine Creatinine 144.71 Urine Microalbumin 18.0 Microalb/Creat Ratio 12.4 Uric Pt Rasburicase Ref Lab Test Result Microbiology Microbiology Results: Microbiology 03/16/22 09:23 Blood Culture - Preliminary Blood - Venous No growth after 24 hours. 03/16/22 09:04 Blood Culture - Preliminary Blood - Venous Prelim: GPC Gram Stain only Assessment and Plan (1) Acute GI bleeding: Status: Acute (2) MDS (myelodysplastic syndrome), high grade: Status: Acute (3) AML (acute myeloblastic leukemia): Status: Acute (4) LYNN (acute kidney injury): Status: Acute (5) Tumor lysis syndrome: Status: Acute (6) Acute hypoxemic respiratory failure: Status: Acute Plan 71 yo M with multiple medical issues including active treatment for MDS who presents with a 1 day history of dark vomitus and a several day history of melatonic stools. His presentation is consistent with upper gi bleed. He will be admitted for further treatment. 1. Acute GI bleed / acute blood loss anemia 2 units prbcs + 2 unit platelets ordered by ED IV PPI GI consult-s/p egd:erosive esophagitis, diffuse gastritis and focal duodenitis,no active bleeding advance diet ,ppi,moniter h/h. h/h stable around 8.9 platelets? 28 which seems to be better than last week. ? GI following. 2. Thrombocytopenia / leukocytosis with 16% blasts-possible AML as per hemtology notes likey due to underlying MDS ED provider discussed the case with patient's oncologist at [facility]. 3. LYNN with metabolic acidosis-possible tumer lysis likely secondary to volume depletion on rasburicase/bicarb drip-ldh,uricacid improvin,cr seems similar to yesterday G6pd normal ?PVR and bladder scan, straight cath if urine nephro folowing 4. possible met sirs criteria/immunocompromised patient has also 1/2 blood culture positive . one low bp episode -due to off midodrine ,low albumin not sepsis lactic acidosis due to severe metabolic abnormalities secondary to tumor lysis syndrome ,lynn,poor oralintake and recent nausea vomiting and diarrhea responded well to the fluids- will continue fluid, added albumin 5. Prior alcohol use reports last drink >3 weeks ago monitor for withdrawal 6 hypothyriodism : Continue levothyroxine. 7. also patient has acute hypoxemic respiratory failure which is multifactorial including severe metabolic this arrangement as well as possible atelectasis, hypoventilation, also has history of laryngectomy with flap: will add nebs, continue oxygen chest x-ray: low lung volumes will add incentive spirometry, chest physiotherapy, nebs continue to monitor- if further worsening of respiratory failure please repeat ABG and may need ice evaluation. ?possible? moderate malnutrition:? nutritional following discussed with ICU- currently continue above management. If patient become hemodynamically unstable may need to go to ICU. Above management discussed with the patient in detail length as well as his at the bedside, in addition we have called multiple hospitals- [facility]does not provide high level care,[facility] -declined due insurance auth, [facility] is full, [facility] also can not take (unless cardiac or cva or PDor obgyn or trauma), [facility] accetpted ,but they are reach out to the their oncology. kindly inform patient's if patient goes to [facility] overnight. Quality Stroke Does the patient have a stroke diagnosis?: No VTE Prior VTE?: No VTE Risk Level:: Medical - moderate - high VTE Device Contraindication: N/A - Device Ordered VTE Drug Contraindication: Treatment Not Tolerated
[2022-03-17 21:10] LABS: Reflex Lactate? Lactic Acid Added
[2022-03-17 21:53] LABS: Mean Corpuscular Hemoglobin 31.2 pg (27.0-33.0); PLT CLUMP 1; Red Cell Distribution Width 16.7 % (11.0-16.0)
[2022-03-17 21:54] LABS: Mean Corpuscular HGB Conc 34.3 g/dl (31.0-36.0); NRBC Pct Auto 0.5 /100WBC (0.0-0.2); Red Blood Count 1.99 X10*6/uL (4.60-5.80)
[2022-03-17 22:01] LABS: PLT ABN DIST 1; WBC ABN SCTR FOR CBC 1
[2022-03-17 22:06] LABS: INTERNATIONAL NORM RATIO 2.5 (0.9-1.1); Prothrombin Time 30.2 SEC (10.0-13.1)
[2022-03-17 22:07] LABS: Hemoglobin 6.2 g/dl (14.0-18.0); White Blood Count 51.2 X10*3/uL (4.8-10.8)
[2022-03-17 22:08] LABS: Hematocrit 18.1 % (42.0-52.0)
--- NOTE | 2022-03-17 22:10 | PM.EVENT ---
Event Note Date of Service: 03/17/22 Event Note: Pt bledding from trach/flap stable oxygenating 94% [facility] have no ground transport tonight but given bleeding will call for air lift as pt becoming critical. will transfuse 1 unit of prbc. ICU informed. If oxygenation deteriorates will tranfer to ICU
[2022-03-17 22:13] LABS: ~Lactic Acid-LAB USE ONLY 6.4 mmol/L (0.5-2.0)
[2022-03-17 22:23] LABS: Atypical Lymph Absolute Manual 0.5 x10*3/uL; Atypical Lymphs Percent Manual 1 % (0-6); Band Neutrophils Percent 6 % (3-5); Basophils Abs Manual 0.5 X10*3/uL (0.0-0.2); Basophils Percent Manual 1 % (0-2); Blast Percent 32 %; Blastocytes Absolute 16.4 X10*3/uL; Lymphocytes Absolute Manual 6.1 X10*3/uL (1.2-4.9); Lymphocytes Percent Manual 12 % (20-40); Metamyelocytes Absolute 0.5 X10*3/uL; Metamyelocytes Percent 1 %; Monocytes Percent Manual 4 % (2-11); Myelocytes Absolute 0.5 X10*/uL; Myelocytes Percent 1 %; Neutrophils Absolute Manual 24.6 X10*3/uL (2.0-8.3); Neutrophils Percent Manual 42 % (45-73); Nucleated Red Blood Cells 2 /100WBC (0-0); RBC Morphology NOTED
[2022-03-17 22:24] LABS: Microcytosis 1+ (5-14) /OIF; Platelet Estimate DECREASED (NORMAL)
[2022-03-17 22:41] LABS: Burr Cells 1+ (0-2) /OIF; Ovalocytes 1+ (5-14) /OIF; Platelet Morphology Comment AGRANULAR; Schistocytes 1+ (0-2) /OIF
[2022-03-17 22:42] LABS: Hypochromasia 1+ (5-14) /OIF; Large Platelet PRESENT; Platelet Count 30 X10*3/uL (160-400); Smudge Cells PRESENT; Toxic Granulation PRESENT
[2022-03-17 23:48] LABS: Reflex Lactate? 2 Y
--- NOTE | 2022-03-18 00:15 | PC.NURSE ---
Pt seen at 21:30 and was noticed to have bright red bleeding with clots at trach flap site. Dr. Heredia notified and came to bedside, ordered CBC and PT/INR on top of follow-up lactic acid. Critical care MD also notified at this time and it was decided that pt had become critical and in need of an airlift transfer to [facility]. Hgb 6.2 and Hct 18.1, MD notified and 1u PRBC ordered. VSS - BP 118/63; HR 102; RR 32; T 98.4F; O2 sat 95% on 11L at 80% through trach collar. Pt tolerated blood transfusion well. Remains alert and orientated, answering questions appropriately. Report given to life flight RN as well as [facility] RN (Anne Marie). Pt transported at [id number].
--- NOTE | 2022-03-18 14:02 | P.DS_ITS ---
DS: Providers Provider Date of Service: 03/18/22 Date of admission: 03/15/22 14:36 Primary care physician: Shaun Osei MD Consults: 03/15/22 14:36 Consult to Gastroenterology Routine Consulting Provider: Og Layne Reason for consultation: GI bleed 03/15/22 16:00 Consult to Hematology / Oncology Routine Consulting Provider: [facility] [place]/Hematology Reason for consultation: ? plt transfusion before EGD 03/16/22 09:25 Consult to Nephrology Routine Consulting Provider: Isreal Edwards Reason for consultation: lynn/tumer lysis syndrome Has provider been notified: No 03/16/22 12:18 Consult to Urology Routine Consulting Provider: Pedro Pablo Devries Reason for consultation: Urinary retention,, LYNN- unable to place Stephen Has provider been notified: No 03/17/22 08:19 Consult to Infectious Diseases Routine Consulting Provider: Swathi Flores Reason for consultation: bacteremia Has provider been notified: No DS: Diagnosis Discharge Diagnosis (1) Acute GI bleeding: Status: Acute (2) MDS (myelodysplastic syndrome), high grade: Status: Acute (3) AML (acute myeloblastic leukemia): Status: Acute (4) LYNN (acute kidney injury): Status: Acute (5) Tumor lysis syndrome: Status: Acute (6) Acute hypoxemic respiratory failure: Status: Acute DS: Summary Hospital Course Hospital Course: 71 year old male with a PMH of MDS currently being treated at [facility], laryngeal ca s/p chemo/laryngectomy (In ), R renal cell Ca s/p resection, prior alcohol use, HTN and Hypotension, hypothryoid, HLD who presents to the ED after he had a dark color vomitus on the day of admission. Due to his laryngectomy, the patient is unable to speak and hence the history is obtained from his who is bedside. She reports that he underwent a bone marrow biopsy at [facility] on the Friady prior to admission. He has had low platelets and anemia for quiet some while. Upon further questioning, the pt does endorse that he had melanotic stools for several days. He reports epigastric abdominal pain. He denies NSAID use. Reports last alcoholic drink was about 3 weeks ago. In the ED, patients work up revealed anemia/thrombocytopenia/leukocytosis (Hb around 7 and platelets around 20, wbc 40 with 16% blasts). Dr. Wright from the ED reported that he discussed the presence of blasts in the patient's peripheral smear with Dr. Rojas at [facility]. Dr. Wright reports that he does not need to be transferred to [facility] for this particular reason. Patient's has CBC records from [facility] from Tuesday (3 days prior to admission) which show 20% blasts. The patient has been given IV PPI, and will be transfused 2 units PRBC + Platelets. GI has been informed by the ED provider. Hospital course: 71 yo M with multiple medical issues including active treatment for MDS who presents with a 1 day history of dark vomitus and a several day history of melatonic stools. His presentation is consistent with upper gi bleed- seen by GI and also received 2 PRBC and 2 units of platelets: H&H improved to 9.4, platelets is 20 range- in addition patient had EGD-erosive esophagitis, diffuse gastritis and focal duodenitis,no active bleeding advance diet ,ppi,moniter h/h 8.9(yesterday morning),Currently patient is on IV PPI which can be changed to p.o. Thrombocytopenia / leukocytosis with 16% blasts-possible AML as per hemtology notes. likey due to underlying MDS. possible tumer lysis syndrome/lynn : patient was started on bicarb drip and in addition added rasburicase and levels G6pd normal. creatinine in range 2.2 ,uric acid improvin from 21 to 18 to 14 today ldh trending from [id number] hemtology also plan to add hyroxyurea until goes to tertiary care center. moniter cbc ,cmp,uric acid ,ldh daily patient was on prophylaxis of Augmentin due to AML - which is changed to Unasyn while inpatient- Switched to IV vancomycin/ Zosyn considering has underlying acute leukemia as well as blood culture positive Gram-positive cocci in cluster preliminary 05/03. repeat blood cultures sent last night is still pending. lactic acidosis seem a multifactorial- due to severe metabolic abnormalities due to tumor lysis syndrome, metabolic acidosis, LYNN, decreased po intake .lactic acid trending down from 11.7 to 7 with hydration. last lactic acid levels were 6.4 overnight( as per chart review). consider Id eval in [facility]. patient has slowly progressive elevated white count of 58, has mild tachycardia also has tachypnea- hypoxia/acute hypoxemic respiratiry failure : possibly multifactorial including sirs ,hypoventilation,atelectasis, also has laryngectomy history with flap , in addition patient develops flap bleeding overnight, H&H dropped to 6.2 and subsequently , patient was airlifted last night to [facility]. (as per night attending note :Pt bledding from trach/flap stable oxygenating 94% [facility] have no ground transport tonight but given bleeding will call for air lift as pt becoming critical. will transfuse 1 unit of prbc. ICU informed. If oxygenation deteriorates will tranfer to ICU) mostly management was discussed earlier with [facility] also when requested transfer yesterday. Time Spent with Patient Time attestation: Total time spent providing and/or coordinating discharge services: Discharge coordination time: Greater than 30 minutes Quality: Safe Use of Opioids Does Pt have an Active Cancer Diagnosis on the Problem List?: No Quality: Stroke Does the patient have a stroke diagnosis?: No Physical Exam Vital Signs: Vital Signs: Last Vital Signs Temp 98.4 F 03/17/22 23:52 Pulse 98 03/17/22 23:52 Resp 28 H 03/17/22 23:52 BP 110/58 L 03/17/22 23:52 Pulse Ox 95 03/17/22 22:19 O2 Del Method 03/17/22 22:19 O2 Flow Rate 11 03/17/22 22:19 BMI result Body Mass Index 20.7 patient left overnight . DS: Data Data Completed and Pending Labs on day of discharge: Laboratory Results - last 24 hr 03/15/22 03/17/22 03/17/22 09:25 12:10 15:02 WBC RBC Hgb Hct MCV MCH MCHC RDW Plt Count MPV Immature Gran % (Auto) Neut % (Auto) Lymph % (Auto) [place] % (Auto) Eos % (Auto) Baso % (Auto) Lymph # (Auto) [facility] # (Auto) Eos # (Auto) Baso # (Auto) Abs Immat Gran (auto) Absolute Neuts (auto) Absolute Nucleated RBC Nucleated RBC % (auto) Neutrophils % (Manual) Band Neutrophils % Lymphocytes % (Manual) Atypical Lymphs % (Man) Monocytes % (Manual) Basophils % (Manual) Metamyelocytes % Myelocytes % Blast Cells % (Manual) Abs Neuts (Manual) Lymphocytes # (Manual) Atyp Lymphs # (Manual) Monocytes # (Manual) Basophils # (Manual) Metamyelocytes # Myelocytes # Blast Cells # Nucleated RBCs Smudge Cells Toxic Granulation Platelet Estimate Large Platelets Plt Morphology Comment RBC Morphology Hypochromasia Microcytosis Ovalocytes [place] Cells Schistocytes PT INR Lactic Acid Lactic Acid F/U @ 2Hr 9.8 H* Urine Creatinine 144.71 Urine Microalbumin 18.0 Microalb/Creat Ratio 12.4 Uric Pt Rasburicase Blood Type A Positive Antibody Screen NEGATIVE Antibody Identification Negative MYRA, Polyspecific NEGATIVE Positive MYAR Work-up TNP Crossmatch See Detail Crossmatch ([facility]) See Detail Enhanced Crossmatch See Detail 03/17/22 03/17/22 03/17/22 19:05 20:01 21:44 WBC RBC Hgb Hct MCV MCH MCHC RDW Plt Count MPV Immature Gran % (Auto) Neut % (Auto) Lymph % (Auto) [facility] % (Auto) Eos % (Auto) Baso % (Auto) Lymph # (Auto) [facility] # (Auto) Eos # (Auto) Baso # (Auto) Abs Immat Gran (auto) Absolute Neuts (auto) Absolute Nucleated RBC Nucleated RBC % (auto) Neutrophils % (Manual) Band Neutrophils % Lymphocytes % (Manual) Atypical Lymphs % (Man) Monocytes % (Manual) Basophils % (Manual) Metamyelocytes % Myelocytes % Blast Cells % (Manual) Abs Neuts (Manual) Lymphocytes # (Manual) Atyp Lymphs # (Manual) Monocytes # (Manual) Basophils # (Manual) Metamyelocytes # Myelocytes # Blast Cells # Nucleated RBCs Smudge Cells Toxic Granulation Platelet Estimate Large Platelets Plt Morphology Comment RBC Morphology Hypochromasia Microcytosis Ovalocytes [place] Cells Schistocytes PT INR Lactic Acid 7.0 H* Lactic Acid F/U @ 2Hr 6.4 H* Urine Creatinine Urine Microalbumin Microalb/Creat Ratio Uric Pt Rasburicase 7.0 Blood Type Antibody Screen Antibody Identification MYRA, Polyspecific Positive MYRA Work-up Crossmatch Crossmatch ([facility]) Enhanced Crossmatch 03/17/22 03/17/22 21:45 21:45 WBC 51.2 H* RBC 1.99 L D Hgb 6.2 L* D Hct 18.1 L* D MCV 91.0 MCH 31.2 MCHC 34.3 RDW 16.7 H Plt Count 30 L MPV TNP Immature Gran % (Auto) Cancelled Neut % (Auto) Cancelled Lymph % (Auto) Cancelled [facility] % (Auto) Cancelled Eos % (Auto) Cancelled Baso % (Auto) Cancelled Lymph # (Auto) Cancelled [facility] # (Auto) Cancelled Eos # (Auto) Cancelled Baso # (Auto) Cancelled Abs Immat Gran (auto) Cancelled Absolute Neuts (auto) Cancelled Absolute Nucleated RBC 0.280 H Nucleated RBC % (auto) 0.5 H Neutrophils % (Manual) 42 L Band Neutrophils % 6 H Lymphocytes % (Manual) 12 L Atypical Lymphs % (Man) 1 Monocytes % (Manual) 4 Basophils % (Manual) 1 Metamyelocytes % 1 Myelocytes % 1 Blast Cells % (Manual) 32 Abs Neuts (Manual) 24.6 H Lymphocytes # (Manual) 6.1 H Atyp Lymphs # (Manual) 0.5 Monocytes # (Manual) 2.0 H Basophils # (Manual) 0.5 H Metamyelocytes # 0.5 Myelocytes # 0.5 Blast Cells # 16.4 Nucleated RBCs 2 H Smudge Cells PRESENT Toxic Granulation PRESENT Platelet Estimate DECREASED Large Platelets PRESENT Plt Morphology Comment AGRANULAR RBC Morphology NOTED Hypochromasia 1+ (5-14) Microcytosis 1+ (5-14) Ovalocytes 1+ (5-14) [place] Cells 1+ (0-2) Schistocytes 1+ (0-2) PT 30.2 H INR 2.5 H Lactic Acid Lactic Acid F/U @ 2Hr Urine Creatinine Urine Microalbumin Microalb/Creat Ratio Uric Pt Rasburicase Blood Type Antibody Screen Antibody Identification MYRA, Polyspecific Positive MYRA Work-up Crossmatch Crossmatch ([facility]) Enhanced Crossmatch Preliminary micro results at discharge 03/16/22 09:23 Blood Culture - Preliminary Blood - Venous No growth after 48 hours. 03/17/22 04:44 Blood Culture - Preliminary Blood - Venous No growth after 24 hours. 03/17/22 04:44 Blood Culture - Preliminary Blood - Venous No growth after 24 hours. Imaging Chest x-ray: Radiologist's impression: ITS Impressions Renal Ultrasound 03/16/22 11:40 IMPRESSION: 1. Unremarkable left kidney. The right kidney has been surgically removed. Chest X-Ray 03/17/22 12:25 IMPRESSION: 1. Port-A-Cath in place properly positioned. 2. Diminished lung volume. No acute infiltrates or failure. Head CT 03/17/22 14:54 IMPRESSION: No acute intracranial pathology. Discharge Plan Discharge Anticipated Discharge Date/Time: 03/16/22 18:32 Patient Disposition: er [facility] Discharge Diagnosis: New onset AML with tumor lysis syndrome and LYNN, GI bleed. Leukocytosis/ anemia/thrombocytopenia Referrals: Shaun Osei MD [Primary Care Provider] - 1 Week Discharge Medications: New pantoprazole [Protonix] 40 mg Recon Soln 40 mg IVPUSH BID@0630,1630 Qty: 1 0RF ampicillin-sulbactam 3 gram Recon Soln 3 g IV Q12H Qty: 1 0RF Continued atorvastatin 40 mg tablet 40 mg PO DAILY@2100 midodrine 5 mg tablet 5 mg PO TID PRN (Reason: Blood Pressure) Rx Instructions: BLOOD PRESSURE <100 SYSTOLIC lidocaine-prilocaine 2.5-2.5 % cream 1 appl topical ONCE PRN (Reason: Painful Procedure) Rx Instructions: USE FOR PORT PROCEDURE NEEDED folic acid 1 mg tablet 1 mg PO DAILY allopurinol 300 mg tablet 300 mg PO DAILY Rx Instructions: WAS SUPPOSED TO INITIATE THERAPY ON 03/15/22 mirtazapine 7.5 mg tablet 7.5 mg PO BEDTIME levothyroxine 100 mcg Tablet 100 mcg PO DAILY acetaminophen 325 mg Tablet 650 mg PO Q4H PRN (Reason: Pain) cyanocobalamin (vitamin B-12) 250 mcg Tablet 250 mcg PO BID prochlorperazine maleate 10 mg Tablet 10 mg PO Q6H PRN (Reason: Nausea) cholecalciferol (vitamin D3) 50 mcg (2,000 unit) Tablet 50 mcg PO DAILY Held amoxicillin-pot clavulanate 875-125 mg tablet 1 tab PO BID Hold Instructions: Resume on 03/16/22. Venclexta 100 mg tablet 400 mg PO DAILY Hold Instructions: Resume on 03/22/22. Rx Instructions: 400 MG IS GOAL DOSE AFTER RAMP UP. THERAPY INITIATION WAS SUPPOSED TO BE 03/15/22 gabapentin 600 mg Tablet 600 mg PO DAILY@2100 Hold Instructions: Resume on 03/22/22. amlodipine 5 mg Tablet 5 mg PO DAILY PRN (Reason: Blood Pressure) Hold Instructions: Resume on 03/22/22. Rx Instructions: TAKE WHEN BLOOD PRESSURE IS >140/90 gabapentin 300 mg Capsule 300 mg PO BID@0900,1300 Hold Instructions: Resume on 03/22/22. Discharge Orders: Discharge Order (Routine); Ordered 03/18/22 Ordered By: Agustin Heredia Diet: Advance to usual diet Activity on Discharge: As tolerated Stand Alone Forms: Patient Portal Discharge page Care Plan Goals: 71 yo M with multiple medical issues including active treatment for MDS who presents with a 1 day history of dark vomitus and a several day history of melatonic stools. His presentation is consistent with upper gi bleed- seen by GI and also received 2 PRBC and 2 units of platelets: H&H improved to 9.4, pl atelets is 20 range- in addition patient had EGD-erosive esophagitis, diffuse gastritis and focal duodenitis,no active bleeding advance diet ,ppi,moniter h/h, Currently patient is on IV PPI which can be changed to p.o. Thrombocytopenia / leukocytosis with 16% blasts-possible AML as per hemtology notes. likey due to underlying MDS. patient was started on bicarb drip and in addition added rasburicase and levels G6pd added. moniter cbc . patient was on prophylaxis of Augmentin due to AML - which is changed to Unasyn while inpatient- Switched to IV vancomycin/ Zosyn considering has underlying acute leukemia as well as blood culture positive Gram-positive cocci in cluster preliminary 05/03. repeat blood cultures sent last night is still pending. patient has slowly progressive elevated white count of 58, has mild tachycardia also has tachypnea- hypoxia: possibly multifactorial including sirs ,hypoventilation,atelectasis, also has laryngectomy history with flap- will continue broad-spectrum antibiotic, hydration, oxygen support- kindly consider pulmonary evaluation- considering history of laryngectomy and flap as well as hypoxia. lactic acidosis possible sec to leukemia /lynn sec to tumer lysis syndrome. Above was discussed with infectious disease and pulmonary. the patient has tumor lysis syndrome with new onset AML and LYNN: In addition patient has anemia and thrombocytopenia: discussed with patient oncologist and oncologist at [facility]: recommended for tertiary care transfer- patient refuses to go to [facility], we try to select specialty hospital and waiting for response: Patient needs to transfer there for possible induction therapy for underlying AML as well as needed better transfusion( blood bank support- considering anemia and severe thrombocytopenia). Consider nephrology evaluation also in worcheser Above management discussed with the patient and his in detail length- they both understand and in agreement with above plan. Health Concerns: monitor CBC, CMP, uric acid, LDH. Plan of Treatment: as above. Assessment: As above. Discharge Date/Time: 03/17/22 23:30
--- NOTE | 2022-03-18 15:28 | MHC.CM.PN ---
Per Dr. Bishop's request, has successfully faxed the dc summary to Dr. Borden at [facility] at fax # [phone].
== END 2022-03-17 23:30 | disposition short-term general hospital (02) | DRG 834 ==
LOC: HO.ED 12:44 → HO.EDOVER 14:45 → HO.IMC 16:59
PROVIDERS: Internal Medicine; Internal Medicine Gastroenterology; Internal Medicine Nephrology; Admitting Provider Family Medicine; Emergency Provider Emergency Medicine Emergency Medical Services; PCP Internal Medicine; Visit Provider Internal Medicine
PROC: 0DJ08ZZ Inspection of Upper Intestinal Tract, Via Natural or Artificial Opening Endoscopic (ICD-10-PCS; principal; 2022-03-16 11:50)
DX: C92.00 Acute myeloblastic leukemia, not having achieved remission (principal); E88.3 Tumor lysis syndrome; K22.11 Ulcer of esophagus with bleeding; K29.71 Gastritis, unspecified, with bleeding; J96.01 Acute respiratory failure with hypoxia; D62 Acute posthemorrhagic anemia; E87.20 Acidosis, unspecified; N17.9 Acute kidney failure, unspecified; J98.11 Atelectasis; E03.9 Hypothyroidism, unspecified; D46.9 Myelodysplastic syndrome, unspecified; I73.9 Peripheral vascular disease, unspecified; K29.80 Duodenitis without bleeding; F10.11 Alcohol abuse, in remission; Z20.822 Contact with and (suspected) exposure to COVID-19; Z85.21 Personal history of malignant neoplasm of larynx; Z85.528 Personal history of other malignant neoplasm of kidney; Z93.0 Tracheostomy status; Z92.21 Personal history of antineoplastic chemotherapy; Z90.5 Acquired absence of kidney; Z87.891 Personal history of nicotine dependence; Z91.041 Radiographic dye allergy status; Z79.890 Hormone replacement therapy; Z79.899 Other long term (current) drug therapy
CPT/HCPCS: 36415; 36430; 70450; 71045; 76775; 80048; 80051; 80053; 80076; 81001; 82043; 82077; 82550; 82565; 82803; 82955; 83605; 83615; 83690; 83880; 84100; 84484; 84520; 84550; 85007; 85025; 85027; 85045; 85384; 85610; 85730; 86850; 86870; 86880; 86900; 86901; 86902; 86920; 86921; 87040; 87147; 87205; 87635; 93005; 96365; 96375; 99285; C1758; J0171; J0295; J1200; J2354; J2405; J2543; J2783; J3010; J3370; J3430; P9016; P9037; P9047; P9073